=== PATIENT | female | born 1985 | race Two or more races ===

== ENCOUNTER → 2017-07-26 | Outpatient (CLI) | payer OTHER ==
--- NOTE | 2017-07-26 12:49 | REP ---
CERVICAL SPINE, NINE VIEWS: HISTORY: Shoulder pain. There is no acute fracture or subluxation. The intervertebral discs are normal in height. The neural foramina are patent. IMPRESSION: There is no acute fracture or subluxation. Signed by Karl Back MD 07/26/2017 12:50 P
--- NOTE | 2017-07-26 12:51 | REP ---
RIGHT SHOULDER, THREE VIEWS: HISTORY: Pain. There is no acute fracture or dislocation. The joint spaces are normal in appearance. IMPRESSION: There is no acute fracture or dislocation. Signed by Karl Back MD 07/26/2017 12:52 P
== END ==
LOC: M LRY 11:35
PROVIDERS: ATTEND Nurse Practitioner Family
DX: M25.511 Pain in right shoulder (principal); M54.2 Cervicalgia
CPT/HCPCS: 72052; 73030; G0463

== ENCOUNTER → 2017-08-18 | Outpatient (REF) | payer OTHER | LOC: M LAB REF 17:38 | PROVIDERS: ATTEND Family Medicine | DX: Z01.419 Encounter for gynecological examination (general) (routine) without abnormal findings (principal); Z11.51 Encounter for screening for human papillomavirus (HPV) ==

== ENCOUNTER → 2017-10-13 | Outpatient (REF) | payer OTHER | LOC: M LAB REF 17:15 | PROVIDERS: ATTEND Physician Assistant Medical | DX: J06.9 Acute upper respiratory infection, unspecified (principal) ==

== ENCOUNTER → 2017-11-18 | Outpatient (REF) | payer OTHER | LOC: M LAB REF 17:13 | PROVIDERS: ATTEND Family Medicine | DX: J02.9 Acute pharyngitis, unspecified (principal) ==

== ENCOUNTER → 2018-02-16 | Outpatient (CLI) | payer OTHER ==
[2018-02-16 13:47] LABS: ALBUMIN 4.1 GM/DL (3.2-5.2); ALBUMIN/GLOBULIN RATIO 1.14 (1.00-1.93); ALKALINE PHOSPHATASE 108 U/L (45-117); ALT/SGPT 21 U/L (12-78); ANION GAP 5 MEQ/L (8-16); AST/SGOT 19 U/L (7-37); BILIRUBIN,TOTAL 0.3 MG/DL (0.2-1.0); BLOOD UREA NITROGEN 8 MG/DL (7-18); CALCIUM LEVEL 8.5 MG/DL (8.5-10.1); CARBON DIOXIDE LEVEL 30 MEQ/L (21-32); CHLORIDE LEVEL 104 MEQ/L (98-107); FREE T4 1.04 NG/DL (0.76-1.46); GLOMERULAR FILTRATION RATE > 60.0 (>60); GLUCOSE, FASTING 97 MG/DL (70-100); POTASSIUM SERUM 4.4 MEQ/L (3.5-5.1); SODIUM LEVEL 139 MEQ/L (136-145); TOTAL PROTEIN 7.7 GM/DL (6.4-8.2)
== END ==
LOC: M SMT 09:45
DX: Z13.29 Encounter for screening for other suspected endocrine disorder (principal)
CPT/HCPCS: 84443

== ENCOUNTER → 2018-04-13 | Outpatient (CLI) | payer OTHER | LOC: M SMT 14:45 | DX: M25.512 Pain in left shoulder (principal); M25.522 Pain in left elbow | CPT/HCPCS: 73030 ==

== ENCOUNTER → 2018-05-20 | Outpatient (REF) | payer OTHER | LOC: M LAB REF 17:23 | DX: N39.3 Stress incontinence (female) (male) (principal) ==

== ENCOUNTER 2018-07-28 13:51 | Emergency (ER) | payer OTHER | END 2018-07-28 15:59 | disposition left against medical advice (07) | LOC: M ED 13:51 | DX: Z53.29 Procedure and treatment not carried out because of patient's decision for other reasons (principal) ==

== ENCOUNTER → 2019-04-28 | Outpatient (CLI) | payer OTHER ==
[~2019-04-28] MED LIST: ADDE20CA3 PO; IBUP1TAB7 PO; LEXA1TAB2 PO; VARE1TA PO; XANA1TAB2 PO
[2019-04-28 14:47] LABS: MONO REFLEX EBV VCA IgM NEGATIVE (NEGATIVE)
== END ==
LOC: M SMT 11:50
PROVIDERS: ATTEND Physician Assistant
DX: R53.83 Other fatigue (principal)

== ENCOUNTER → 2019-05-09 | Outpatient (REF) | payer OTHER | LOC: M LAB REF 17:16 | PROVIDERS: ATTEND Physician Assistant | DX: R35.0 Frequency of micturition (principal) ==

== ENCOUNTER 2019-05-31 20:36 | Emergency (ER) | payer OTHER ==
[~2019-05-31] VITALS: Ht 154.9 cm; Wt 63.6 kg
[2019-05-31] MEDS ORDERED: ADDE1TAB14 PO (21:15)
[2019-05-31] MEDS ORDERED: GI COCKTAIL 50ML BTL(HYOSCYAMINE/MAALOX/LIDOCAINE VISCOUS)(1:3:1) PO ONE (22:00)
[2019-05-31 22:58] VITALS: BP 115/80
[2019-05-31] MEDS ORDERED: TRAM50TA2 PO (22:58)
[2019-05-31] MEDS ORDERED: SUCR1SS PO (22:58)
[2019-05-31] MEDS ORDERED: traMADol 50 MG TAB PO ONE (23:15)
== END 2019-05-31 23:06 | disposition home or self-care (01) ==
LOC: M ED 20:36
DX: K21.0 Gastro-esophageal reflux disease with esophagitis (principal); K27.9 Peptic ulcer, site unspecified, unspecified as acute or chronic, without hemorrhage or perforation; M25.562 Pain in left knee; F90.9 Attention-deficit hyperactivity disorder, unspecified type; Z87.19 Personal history of other diseases of the digestive system; Z88.0 Allergy status to penicillin; Z88.1 Allergy status to other antibiotic agents

== ENCOUNTER 2019-06-08 20:18 | Emergency (ER) | payer OTHER ==
[~2019-06-08] VITALS: Ht 154.9 cm; Wt 130.0 kg
[~2019-06-08 20:18] MED LIST changes: +ADDE1TAB14 PO; +SUCR1SS PO; +TRAM50TA2 PO
[2019-06-08 21:42] LABS: BASO # 0.1 10^3/uL (0.0-0.2); BASO % 0.4 % (0.0-1.0); EOS # 0.1 10^3/uL (0.0-0.50); HEMATOCRIT 34.7 % (36.0-47.0); HEMOGLOBIN 11.6 g/dl (12.0-15.5); LYMPH # 2.4 10^3/uL (1.5-4.5); LYMPH % 20.8 % (24.0-44.0); MEAN CORPUSCULAR HEMOGLOBIN 31.5 pg (27.0-33.0); MEAN CORPUSCULAR HGB CONC 33.4 g/dl (32.0-36.5); MEAN CORPUSCULAR VOLUME 94.3 fl (80.0-96.0); MONO # 0.9 10^3/uL (0.0-0.8); MONO % 8.3 % (0.0-5.0); NEUTROPHILS # 7.8 10^3/uL (1.8-7.7); NEUTROPHILS % 68.8 % (36.0-66.0); PLATELET COUNT, AUTOMATED 348 10^3/uL (150-450); RED BLOOD COUNT 3.68 10^6/uL (4.00-5.40); WHITE BLOOD COUNT 11.3 10^3/uL (4.0-10.0)
[2019-06-08 22:05] LABS: ALBUMIN 3.3 GM/DL (3.2-5.2); ALT/SGPT 23 U/L (12-78); BILIRUBIN,DIRECT 0.1 MG/DL (0.0-0.2); BILIRUBIN,TOTAL 0.3 MG/DL (0.2-1.0); BLOOD UREA NITROGEN 8 MG/DL (7-18); CALCIUM LEVEL 8.5 MG/DL (8.5-10.1); CARBON DIOXIDE LEVEL 26 MEQ/L (21-32); CHLORIDE LEVEL 104 MEQ/L (98-107); CREATININE FOR GFR 0.54 MG/DL (0.55-1.30); GLOMERULAR FILTRATION RATE > 60.0 (>60); GLUCOSE, FASTING 86 MG/DL (70-100); LIPASE 55 U/L (73-393); POTASSIUM SERUM 3.3 MEQ/L (3.5-5.1); SODIUM LEVEL 140 MEQ/L (136-145); TOTAL PROTEIN 7.7 GM/DL (6.4-8.2)
[2019-06-08] MEDS ORDERED: NAPR-837 PO (23:29)
[2019-06-08] MEDS ORDERED: POTASSIUM CHLORIDE 10 MEQ SR TABLET PO ONE (23:30)
[2019-06-08] MEDS ORDERED: KETOROLAC 30 MG/ML VIAL (J1885) IM ONE (23:30)
[2019-06-09 00:27] VITALS: BP 132/72
== END 2019-06-09 00:29 | disposition home or self-care (01) ==
LOC: M ED 20:18
DX: R07.81 Pleurodynia (principal); M94.9 Disorder of cartilage, unspecified; E87.6 Hypokalemia; F41.9 Anxiety disorder, unspecified; F32.9 Major depressive disorder, single episode, unspecified; F90.9 Attention-deficit hyperactivity disorder, unspecified type; F17.200 Nicotine dependence, unspecified, uncomplicated; Z88.0 Allergy status to penicillin; Z88.1 Allergy status to other antibiotic agents
CPT/HCPCS: 80048; 80076; 81001; 83690; 85025; 93041; 94760; 96372; 99284; J1885

== ENCOUNTER 2019-06-20 18:11 | Inpatient (IN) | payer OTHER ==
[~2019-06-20] VITALS: Ht 154.9 cm; Wt 67.8 kg
[~2019-06-20 18:11] MED LIST changes: +NAPR-837 PO
[2019-06-20] MEDS ORDERED: CLIN300C5 (18:23)
[2019-06-20] MEDS ORDERED: METH2.5T48 (18:23)
[2019-06-20] MEDS ORDERED: FOLI1TAB11 (18:23)
[2019-06-20] MEDS ORDERED: ONDA4TAB5 (18:23)
[2019-06-20] MEDS ORDERED: FLUO20CA19 (18:24)
[2019-06-20] MEDS ORDERED: ALPR1TAB3 (18:24)
[2019-06-20] MEDS ORDERED: CLON1TAB8 (18:24)
[2019-06-20] MEDS ORDERED: PROZ20CA11 PO (19:52)
[2019-06-20] MEDS ORDERED: ZANT150T40 PO ×2 (19:52→23:17)
[2019-06-20 20:58] LABS: BASO # 0.1 10^3/uL (0.0-0.2); BASO % 0.4 % (0.0-1.0); EOS # 0.2 10^3/uL (0.0-0.50); EOS % 1.4 % (0.0-3.0); HEMATOCRIT 32.9 % (36.0-47.0); HEMOGLOBIN 10.6 g/dl (12.0-15.5); LYMPH # 2.3 10^3/uL (1.5-4.5); LYMPH % 18.2 % (24.0-44.0); MEAN CORPUSCULAR HGB CONC 32.2 g/dl (32.0-36.5); MEAN CORPUSCULAR VOLUME 93.2 fl (80.0-96.0); MONO # 0.8 10^3/uL (0.0-0.8); MONO % 6.1 % (0.0-5.0); NEUTROPHILS # 9.3 10^3/uL (1.8-7.7); NEUTROPHILS % 73.2 % (36.0-66.0); PLATELET COUNT, AUTOMATED 403 10^3/uL (150-450); RED BLOOD COUNT 3.53 10^6/uL (4.00-5.40); WHITE BLOOD COUNT 12.7 10^3/uL (4.0-10.0)
[2019-06-20 21:16] LABS: ALBUMIN 3.3 GM/DL (3.2-5.2); ALT/SGPT 48 U/L (12-78); BILIRUBIN,DIRECT 0.2 MG/DL (0.0-0.2); BILIRUBIN,TOTAL 0.3 MG/DL (0.2-1.0); BLOOD UREA NITROGEN 6 MG/DL (7-18); CALCIUM LEVEL 8.6 MG/DL (8.5-10.1); CARBON DIOXIDE LEVEL 30 MEQ/L (21-32); CHLORIDE LEVEL 106 MEQ/L (98-107); GLOMERULAR FILTRATION RATE > 60.0 (>60); GLUCOSE, FASTING 92 MG/DL (70-100); POTASSIUM SERUM 3.4 MEQ/L (3.5-5.1); SODIUM LEVEL 141 MEQ/L (136-145); TOTAL PROTEIN 7.4 GM/DL (6.4-8.2)
[2019-06-20 21:18] LABS: ERYTHROCYTE SEDIMENTATION RATE 107 mm/hr (0-20)
[2019-06-20] MEDS ORDERED: NS 1,000 ML IV ONE (22:00)
--- NOTE | 2019-06-20 22:58 | HPEPDOC ---
General Date of Admission 06/20/19 Date of Service: Jun 20, 2019 Attending Physician: ROBY VOGT MD Chief Complaint The patient is a 33-year-old female admitted with a reason for visit of Skin Pro blem. Source: Patient Exam Limitations: No limitations Timing/Duration: Day(s) Severity: Mild Associated Symptoms: Rash History of Present Illness 33 years old white female with past medical history of rheumatoid arthritis, status post partial hysterectomy was in her usual state of health until she noticed that she was bitten by a spider on her inner aspect of left lower accident. He just above the ankle and it started swelling, redness with with the serosanguineous discharge. Patient was sent by her tractor expert for further evaluation and possible admission for IV antibiotics Home Medications Scheduled Clindamycin Hcl (Cleocin HCl) 300 Mg Capsule, 300 MG PO Q8H, (Reported) Dextroamphetamine/Amphetamine (Adderall 5 mg Tablet) 5 Mg Tablet, 5 MG PO BID, (Reported) 0800, 1300 Fluoxetine Hcl (Fluoxetine HCl) 20 Mg Capsule, 60 MG PO DAILY, (Reported) Folic Acid (Folic Acid) 1 Mg Tablet, 1 MG PO DAILY, (Reported) Methotrexate Sodium (Methotrexate) 2.5 Mg Tablet, 10 MG PO 1XWK, (Reported) Ondansetron HCl (Ondansetron HCl) 4 Mg Tablet, 4 MG PO 1XWK, (Reported) TAKES WITH METHOTREXATE Ranitidine Hcl (Zantac) 150 Mg Tablet, 1 TAB PO BID, (Reported) Scheduled PRN Acetaminophen (Tylenol Extra Strength) 500 Mg Tablet, 1,000 MG PO Q6H PRN for PAIN, (Reported) Alprazolam (Alprazolam) 1 Mg Tablet, 1 MG PO BID PRN for ANXIETY, (Reported) Allergies Coded Allergies: Penicillins (Verified Allergy, Intermediate, THROAT CLOSING , 05/31/19) levofloxacin (Verified Allergy, Intermediate, VOMITING AND CHEST PAIN, 05/31/19) Past Medical History Medical History Rheumatoid arthritis, anxiety disorder Surgical History Partial hysterectomy Family History Significant Family History: No pertinent family hx Social History * Smoker: Denies Alcohol: Denies Drugs: denies A-FIB/CHADSVASC A-FIB History Current/History of A-Fib/PAF?: No Review of Systems Constitutional: Denies: Chills, Fever, Malaise, Night Sweats, Weakness, Fatigue, Weight Loss, Lethargy, Other Eyes: Denies: Pain, Vision change, Conjunctivae inflammation, Eyelid inflammation, Redness, Other ENT: Denies: Head Aches, Ear Pain, Dysphagia, Sinus Congestion, Post Nasal Drip, Sore Throat, Epistaxis, Other Symptoms Skin: Denies: Rash, Lesions, Jaundice, Bruising, Itching, Dry, Breakdown, Nail Changes, Other Pulmonary: Denies: Dyspnea, Cough, Pleuritic Chest Pain, Other Symptoms Cardiovascular: Denies: Chest Pain, Palpitations, Orthopnea, Paroxysmal Noc. Dyspnea, Edema, Lt Headedness, Other Symptoms Genitourinary: Denies: Dysuria, Frequency, Incontinence, Hematuria, Retention, Other Symptoms Hematologic: Denies: Bruising, Bleeding Excessively, Petecchia, Purpura, Enlarged Lymph Nodes, Other Hematologic Endocrine: Denies: Polydipsia, Polyphagia, Polyuria, Heat Intolerance, Cold Intolerance, Other Endocrine Sx Musculoskeletal: Reports: Other Symptoms (swelling, redness with some discharge at the inner aspect of left lower extremity just above the ankle) Neurological: Denies: Weakness, Numbness, Incoordination, Change in speech, Confusion, Seizures, Other Symptoms Psych: Denies: Mood Normal, Anxiety, Depression, Memory Issues, Thoughts of Self Harm, Anger, Thoughts of Harming Other, Other Psych Physical Examination General Exam: Positive: Alert, Cooperative Eye Exam: Positive: PERRLA, Conjunctiva & lids normal ENT Exam: Positive: Atraumatic, Mucous membr. moist/pink Neck Exam: Positive: Supple Chest Exam: Positive: Clear to auscultation, Normal air movement Heart Exam: Positive: Rate Normal, Normal S1, Normal S2 Abdomen Exam: Positive: Normal bowel sounds Extremity Exam: Positive: Normal pulses, Other (swelling, redness with some discharge and the wound at left lower extremity inner aspect just above the medial malleolus) Skin Exam: Positive: Nl turgor and temperature Neuro Exam: Positive: Normal Gait Psych Exam: Positive: Mental status NL Vital Signs Vital Signs Date Time Temp Pulse Resp B/P (MAP) Pulse Ox O2 Delivery O2 Flow Rate FiO2 06/20/19 22:39 98.3 77 123/77 (92) 99 06/20/19 18:12 17 Room Air Laboratory Data Labs 24H Laboratory Tests 2 06/20/19 20:37: Immature Granulocyte % (Auto) 0.7, White Blood Count 12.7H, Red Blood Count 3.53L, Hemoglobin 10.6L, Hematocrit 32.9L, Mean Corpuscular Volume 93.2, Mean Corpuscular Hemoglobin 30.0, Mean Corpuscular Hemoglobin Concent 32.2, Red Cell Distribution Width 12.9, Platelet Count 403, Neutrophils (%) (Auto) 73.2H, Lymphocytes (%) (Auto) 18.2L, Monocytes (%) (Auto) 6.1H, Eosinophils (%) (Auto) 1.4, Basophils (%) (Auto) 0.4, Neutrophils # (Auto) 9.3H, Lymphocytes # (Auto) 2.3, Monocytes # (Auto) 0.8, Eosinophils # (Auto) 0.2, Basophils # (Auto) 0.1, Nucleated Red Blood Cells % (auto) 0.0, Erythrocyte Sedimentation Rate 107H, Anion Gap 5L, Glomerular Filtration Rate > 60.0, Lactic Acid Level 0.8, Calcium Level 8.6, Aspartate Amino Transf (AST/SGOT) 49H, Alanine Aminotransferase (ALT/SGPT) 48, Alkaline Phosphatase 218H, Total Bilirubin 0.3, Direct Bilirubin 0.2, C-Reactive Protein, Quantitative 17.90H, Total Protein 7.4, Albumin 3.3, Albumin/Globulin Ratio 0.80L CBC/BMP Laboratory Tests 06/20/19 20:37 Red Blood Count 3.53 L, Mean Corpuscular Volume 93.2, Mean Corpuscular Hemoglobin 30.0, Mean Corpuscular Hemoglobin Concent 32.2, Red Cell Distribution Width 12.9, Neutrophils (%) (Auto) 73.2 H, Lymphocytes (%) (Auto) 18.2 L, Monocytes (%) (Auto) 6.1 H, Eosinophils (%) (Auto) 1.4, Basophils (%) (Auto) 0.4, Neutrophils # (Auto) 9.3 H, Lymphocytes # (Auto) 2.3, Monocytes # (Auto) 0.8, Eosinophils # (Auto) 0.2, Basophils # (Auto) 0.1 Microbiology Microbiology 06/20/19 Gram Stain, Received Pending 06/20/19 Wound Culture, Received Pending Problems (1) Cellulitis and abscess of left leg Status: Acute Problem Text: Admit to medical floor IV clindamycin 300 mg IV every 8 hours Wound culture and Gram stain has been ordered , Tylenol when necessary Please follow wound culture once available DVT prophylaxis with Lovenox Regular diet Activity as tolerated Follow a.m. labs Plan / VTE VTE Prophylaxis Ordered?: Yes ROBY VOGT MD Jun 20, 2019 22:58
[2019-06-20] MEDS ORDERED: CLEO300C2 PO (23:17)
[2019-06-20] MEDS ORDERED: FLUO20CA8 PO (23:17)
[2019-06-20] MEDS ORDERED: METH2.5T48 PO (23:17)
[2019-06-20] MEDS ORDERED: ACET-897 PO (23:17)
[2019-06-20] MEDS ORDERED: ALPR1TAB3 PO (23:17)
[2019-06-20] MEDS ORDERED: ADDE1TAB14 PO (23:17)
[2019-06-20] MEDS ORDERED: FOLI1TAB11 PO (23:17)
[2019-06-20] MEDS ORDERED: ONDA4TAB5 PO (23:17)
[2019-06-21] VITALS: BP 129/78
[2019-06-21] MEDS: CLINDAMYCIN 300 MG in APPROPRIATE DILUENT 1 EA IV SCH ×4 (00:08→23:31)
[2019-06-21] MEDS: ACETAMINOPHEN TAB 650MG DOSE (2X325MG) PO PRN ×4 (00:31→19:20)
[2019-06-21] MEDS: ALPRAZolam 0.5 MG TAB PO PRN ×3 (00:51→20:36)
[2019-06-21 08:00] VITALS: BP 128/82
[2019-06-21] MEDS: ADDERALL 5 MG TAB PO SCH ×2 (08:00→13:00)
[2019-06-21] MEDS: ENOXAPARIN 40 MG/0.4 ML SYRINGE (J1650) SC SCH (08:11)
[2019-06-21] MEDS: FOLIC ACID 1 MG TAB PO SCH (08:12)
[2019-06-21] MEDS: FLUoxetine 20 MG CAP PO SCH (08:12)
[2019-06-21] MEDS: FAMOTIDINE 20 MG TAB PO SCH ×2 (08:13→20:36)
[2019-06-21 08:58] LABS: HEMATOCRIT 29.8 % (36.0-47.0); HEMOGLOBIN 9.7 g/dl (12.0-15.5); MEAN CORPUSCULAR HGB CONC 32.6 g/dl (32.0-36.5); MEAN CORPUSCULAR VOLUME 92.3 fl (80.0-96.0); PLATELET COUNT, AUTOMATED 340 10^3/uL (150-450); RED BLOOD COUNT 3.23 10^6/uL (4.00-5.40); WHITE BLOOD COUNT 9.2 10^3/uL (4.0-10.0)
[2019-06-21 09:29] LABS: ALBUMIN 2.7 GM/DL (3.2-5.2); ALT/SGPT 48 U/L (12-78); BILIRUBIN,TOTAL 0.3 MG/DL (0.2-1.0); BLOOD UREA NITROGEN 6 MG/DL (7-18); CALCIUM LEVEL 8.3 MG/DL (8.5-10.1); CARBON DIOXIDE LEVEL 28 MEQ/L (21-32); CHLORIDE LEVEL 108 MEQ/L (98-107); CREATININE FOR GFR 0.67 MG/DL (0.55-1.30); GLOMERULAR FILTRATION RATE > 60.0 (>60); GLUCOSE, FASTING 115 MG/DL (70-100); POTASSIUM SERUM 3.5 MEQ/L (3.5-5.1); SODIUM LEVEL 140 MEQ/L (136-145); TOTAL PROTEIN 7.5 GM/DL (6.4-8.2)
[2019-06-21] MEDS: traMADol 50 MG TAB PO PRN ×2 (11:18→23:31)
--- NOTE | 2019-06-21 12:25 | IPNPDOC ---
Subjective Date Seen The patient was seen on 06/21/19. Subjective Chief Complaint/HPI Patient seen and examined at the bedside. States that she is feeling better today, and notes that the drainage from her left lower extremity wound is improved. Objective Physical Examination General Exam: Positive: Alert, Cooperative, No Acute Distress Eye Exam: Positive: PERRLA, Conjunctiva & lids normal ENT Exam: Positive: Atraumatic, Mucous membr. moist/pink Neck Exam: Positive: Supple Chest Exam: Positive: Clear to auscultation, Normal air movement Heart Exam: Positive: Rate Normal, Normal S1, Normal S2 Abdomen Exam: Positive: Normal bowel sounds Extremity Exam: Positive: Normal pulses, Other (swelling, redness with some discharge and the wound at left lower extremity inner aspect just above the medial malleolus. Area of induration and erythema appears improved from previous demarcation site.) Psych Exam: Positive: Mental status NL, Oriented x 3 Assessment /Plan Problems (1) Cellulitis and abscess of left leg Status: Acute Problem Text: Admit to medical floor Continue clindamycin 300 mg IV every 8 hours Wound culture and Gram stain pending Area of induration and erythema appears improved compared to previous d emarcation site. White blood cell count and CRP markers improved Wound care nurse consulted We will continue to monitor Rheumatoid arthritis Follow-up as an outpatient and restart methotrexate once over acute infection. DVT prophylaxis with Lovenox Plan/VTE VTE Prophylaxis Ordered?: Yes VS, I&O, 24H, Fishbone Vital Signs/I&O Vital Signs Date Time Temp Pulse Resp B/P (MAP) Pulse Ox O2 Delivery O2 Flow Rate FiO2 06/21/19 11:18 16 06/21/19 08:00 97.4 71 128/82 (97) 96 06/20/19 18:12 Room Air I&O- Last 24 Hours up to 6 AM 06/21/19 06:00 Intake Total 50 ml Output Total 450 ml Balance -400 ml Laboratory Data 24H LABS Laboratory Tests 2 06/20/19 20:37: Immature Granulocyte % (Auto) 0.7, White Blood Count 12.7H, Red Blood Count 3.53L, Hemoglobin 10.6L, Hematocrit 32.9L, Mean Corpuscular Volume 93.2, Mean Corpuscular Hemoglobin 30.0, Mean Corpuscular Hemoglobin Concent 32.2, Red Cell Distribution Width 12.9, Platelet Count 403, Neutrophils (%) (Auto) 73.2H, Lymphocytes (%) (Auto) 18.2L, Monocytes (%) (Auto) 6.1H, Eosinophils (%) (Auto) 1.4, Basophils (%) (Auto) 0.4, Neutrophils # (Auto) 9.3H, Lymphocytes # (Auto) 2.3, Monocytes # (Auto) 0.8, Eosinophils # (Auto) 0.2, Basophils # (Auto) 0.1, Nucleated Red Blood Cells % (auto) 0.0, Erythrocyte Sedimentation Rate 107H, Anion Gap 5L, Glomerular Filtration Rate > 60.0, Lactic Acid Level 0.8, Calcium Level 8.6, Aspartate Amino Transf (AST/SGOT) 49H, Alanine Aminotransferase (ALT/SGPT) 48, Alkaline Phosphatase 218H, Total Bilirubin 0.3, Direct Bilirubin 0.2, C-Reactive Protein, Quantitative 17.90H, Total Protein 7.4, Albumin 3.3, Albumin/Globulin Ratio 0.80L 06/21/19 08:47: Nucleated Red Blood Cells % (auto) 0.0, Anion Gap 4L, Glomerular Filtration Rate > 60.0, Calcium Level 8.3L, Aspartate Amino Transf (AST/SGOT) 43H, Alanine Aminotransferase (ALT/SGPT) 48, Alkaline Phosphatase 187H, Total Bilirubin 0.3, C-Reactive Protein, Quantitative 12.60H, Total Protein 7.5, Albumin 2.7L, Albumin/Globulin Ratio 0.56L, Blood Urea Nitrogen 6L, Creatinine 0.67, Sodium Level 140, Potassium Level 3.5, Chloride Level 108H, Carbon Dioxide Level 28 CBC/BMP Laboratory Tests 06/20/19 20:37 Red Blood Count 3.53 L, Mean Corpuscular Volume 93.2, Mean Corpuscular Hemoglobin 30.0, Mean Corpuscular Hemoglobin Concent 32.2, Red Cell Distribution Width 12.9, Neutrophils (%) (Auto) 73.2 H, Lymphocytes (%) (Auto) 18.2 L, Monocytes (%) (Auto) 6.1 H, Eosinophils (%) (Auto) 1.4, Basophils (%) (Auto) 0.4, Neutrophils # (Auto) 9.3 H, Lymphocytes # (Auto) 2.3, Monocytes # (Auto) 0.8, Eosinophils # (Auto) 0.2, Basophils # (Auto) 0.1 06/21/19 08:47 Red Blood Count 3.23 L, Mean Corpuscular Volume 92.3, Mean Corpuscular Hemoglobin 30.0, Mean Corpuscular Hemoglobin Concent 32.6, Red Cell Distribution Width 13.0, Calcium Level 8.3 L, Aspartate Amino Transf (AST/SGOT) 43 H, Alanine Aminotransferase (ALT/SGPT) 48, Alkaline Phosphatase 187 H, Total Bilirubin 0.3, Total Protein 7.5, Albumin 2.7 L Microbiology Microbiology 06/20/19 Gram Stain - Final, Resulted 06/20/19 Wound Culture, Resulted Pending MIKE CASTAÑEDA MD Jun 21, 2019 12:25
[2019-06-21] MEDS: NICOTINE 21MG/24HR 1 EA TRANSDERMAL TD SCH (13:04)
[2019-06-21 16:00] VITALS: BP 125/84
[2019-06-21 20:00] VITALS: BP 143/81
[2019-06-21] MEDS: KETOROLAC 30 MG/ML VIAL (J1885) IM PRN (20:36)
[2019-06-22 04:00] VITALS: BP 130/82
[2019-06-22] MEDS: ACETAMINOPHEN TAB 650MG DOSE (2X325MG) PO PRN ×3 (06:36→17:50)
[2019-06-22] MEDS: KETOROLAC 30 MG/ML VIAL (J1885) IM PRN ×2 (06:37→17:04)
[2019-06-22 07:49] LABS: HEMOGLOBIN 9.4 g/dl (12.0-15.5); MEAN CORPUSCULAR HEMOGLOBIN 30.3 pg (27.0-33.0); MEAN CORPUSCULAR HGB CONC 33.6 g/dl (32.0-36.5); MEAN CORPUSCULAR VOLUME 90.3 fl (80.0-96.0); PLATELET COUNT, AUTOMATED 337 10^3/uL (150-450); WHITE BLOOD COUNT 9.2 10^3/uL (4.0-10.0)
[2019-06-22 08:00] VITALS: BP 119/66
[2019-06-22] MEDS: ADDERALL 5 MG TAB PO SCH ×2 (08:00→13:00)
[2019-06-22 08:11] LABS: BLOOD UREA NITROGEN 9 MG/DL (7-18); CALCIUM LEVEL 8.2 MG/DL (8.5-10.1); CARBON DIOXIDE LEVEL 25 MEQ/L (21-32); CHLORIDE LEVEL 108 MEQ/L (98-107); CREATININE FOR GFR 0.62 MG/DL (0.55-1.30); GLOMERULAR FILTRATION RATE > 60.0 (>60); GLUCOSE, FASTING 97 MG/DL (70-100); POTASSIUM SERUM 3.8 MEQ/L (3.5-5.1); SODIUM LEVEL 140 MEQ/L (136-145)
[2019-06-22] MEDS: CLINDAMYCIN 300 MG in APPROPRIATE DILUENT 1 EA IV SCH ×2 (08:24→16:46)
[2019-06-22] MEDS: NICOTINE 21MG/24HR 1 EA TRANSDERMAL TD SCH (09:09)
[2019-06-22] MEDS: ENOXAPARIN 40 MG/0.4 ML SYRINGE (J1650) SC SCH (09:09)
[2019-06-22] MEDS: FAMOTIDINE 20 MG TAB PO SCH ×2 (09:10→20:24)
[2019-06-22] MEDS: FOLIC ACID 1 MG TAB PO SCH (09:10)
[2019-06-22] MEDS: FLUoxetine 20 MG CAP PO SCH (09:10)
[2019-06-22] MEDS: ALPRAZolam 0.5 MG TAB PO PRN ×2 (09:21→21:47)
[2019-06-22 10:19] LABS: FERRITIN 254 NG/ML (8-252); IRON (FE) 24 UG/DL (50-170); PERCENT SATURATION 12.8 % (13.2-45.0); TOTAL IRON BINDING CAPACITY 188 UG/DL (250-450)
[2019-06-22 10:33] LABS: VITAMIN B12 LEVEL 637 PG/ML (247-911)
[2019-06-22 10:34] LABS: FOLATE 12.1 NG/ML (>5.4)
--- NOTE | 2019-06-22 11:49 | IPNPDOC ---
Subjective Date Seen The patient was seen on 06/22/19. Subjective Chief Complaint/HPI Patient seen and examined at bedside. Reports that her left lower extremity wound is improving. She endorses improvement of her pain level. Objective Physical Examination General Exam: Positive: Alert, Cooperative, No Acute Distress Eye Exam: Positive: PERRLA, Conjunctiva & lids normal ENT Exam: Positive: Atraumatic, Mucous membr. moist/pink Neck Exam: Positive: Supple Chest Exam: Positive: Clear to auscultation, Normal air movement Heart Exam: Positive: Rate Normal, Normal S1, Normal S2 Abdomen Exam: Positive: Normal bowel sounds Extremity Exam: Positive: Normal pulses, Other (swelling, redness with some discharge and the wound at left lower extremity inner aspect just above the medial malleolus. Area of induration and erythema appears improved from previous demarcation site.) Psych Exam: Positive: Mental status NL, Oriented x 3 Assessment /Plan Plan/VTE VTE Prophylaxis Ordered?: Yes Plan LLE Cellulitis Continue clindamycin 300 mg IV every 8 hours Wound culture and Gram stain unrevealing thus far Area of induration and erythema appears improved compared to previous demarcation site. White blood cell count and CRP markers improved Wound care nurse on board We will continue to monitor--anticipate transition to PO Abx in 24 hrs Rheumatoid arthritis Follow-up as an outpatient and restart methotrexate once over acute infection. Normocytic Anemia 2/2 Iron Deficiency Anemia No active bleeding noted, (patient does not have menstrual cycle as she had a hysterectomy in the past) Iron supplementation ordered DVT prophylaxis with Lovenox VS, I&O, 24H, Fishbone Vital Signs/I&O Vital Signs Date Time Temp Pulse Resp B/P (MAP) Pulse Ox O2 Delivery O2 Flow Rate FiO2 06/22/19 11:37 16 06/22/19 08:00 98.3 68 119/66 (83) 98 06/20/19 18:12 Room Air I&O- Last 24 Hours up to 6 AM 06/22/19 06:00 Intake Total 2260 ml Output Total 2200 ml Balance 60 ml Laboratory Data 24H LABS Laboratory Tests 2 06/22/19 07:36: Nucleated Red Blood Cells % (auto) 0.0, Anion Gap 7L, Glomerular Filtration Rate > 60.0, Blood Urea Nitrogen 9, Creatinine 0.62, Sodium Level 140, Potassium Level 3.8, Chloride Level 108H, Carbon Dioxide Level 25, Calcium Level 8.2L, Iron Level 24L, Total Iron Binding Capacity 188L, Transferrin % Saturation 12.8L, Ferritin 254H, C-Reactive Protein, Quantitative 10.20H, Vitamin B12 Level 637, Folate 12.1 CBC/BMP Laboratory Tests 06/22/19 07:36 Red Blood Count 3.10 L, Mean Corpuscular Volume 90.3, Mean Corpuscular Hemoglobin 30.3, Mean Corpuscular Hemoglobin Concent 33.6, Red Cell Distribution Width 12.9, Calcium Level 8.2 L Microbiology Microbiology 06/20/19 Gram Stain - Final, Complete 06/20/19 Wound Culture - Final, Complete MIKE CASTAÑEDA MD Jun 22, 2019 11:49
[2019-06-22] MEDS: FERROUS SULFATE 325MG TAB PO SCH (13:28)
[2019-06-22] MEDS: traMADol 50 MG TAB PO PRN (13:28)
[2019-06-22 16:00] VITALS: BP 123/72
[2019-06-22 20:00] VITALS: BP 122/83
[2019-06-22] MEDS: ONDANSETRON 4 MG TAB (S0181) PO PRN (21:47)
[2019-06-23] VITALS: BP 122/81
[2019-06-23] MEDS: CLINDAMYCIN 300 MG in APPROPRIATE DILUENT 1 EA IV SCH ×2 (00:28→08:28)
[2019-06-23] MEDS: KETOROLAC 30 MG/ML VIAL (J1885) IM PRN ×2 (00:30→08:41)
[2019-06-23] MEDS: traMADol 50 MG TAB PO PRN (01:49)
[2019-06-23] MEDS: ACETAMINOPHEN TAB 650MG DOSE (2X325MG) PO PRN (05:49)
[2019-06-23] MEDS: ONDANSETRON 4 MG TAB (S0181) PO PRN ×2 (05:49→11:07)
[2019-06-23 06:23] LABS: HEMATOCRIT 32.9 % (36.0-47.0); HEMOGLOBIN 10.7 g/dl (12.0-15.5); MEAN CORPUSCULAR HEMOGLOBIN 30.7 pg (27.0-33.0); MEAN CORPUSCULAR HGB CONC 32.5 g/dl (32.0-36.5); MEAN CORPUSCULAR VOLUME 94.5 fl (80.0-96.0); PLATELET COUNT, AUTOMATED 346 10^3/uL (150-450); RED BLOOD COUNT 3.48 10^6/uL (4.00-5.40); WHITE BLOOD COUNT 8.4 10^3/uL (4.0-10.0)
[2019-06-23 08:00] VITALS: BP 124/89
[2019-06-23] MEDS: ADDERALL 5 MG TAB PO SCH (08:00)
[2019-06-23] MEDS ORDERED: MOM 30ML SUSPENSION UDC PO PRN (08:15)
[2019-06-23] MEDS: FOLIC ACID 1 MG TAB PO SCH (08:28)
[2019-06-23] MEDS: FERROUS SULFATE 325MG TAB PO SCH (08:28)
[2019-06-23] MEDS: NICOTINE 21MG/24HR 1 EA TRANSDERMAL TD SCH (08:29)
[2019-06-23] MEDS: ENOXAPARIN 40 MG/0.4 ML SYRINGE (J1650) SC SCH (08:29)
[2019-06-23] MEDS: FAMOTIDINE 20 MG TAB PO SCH (08:29)
[2019-06-23] MEDS: FLUoxetine 20 MG CAP PO SCH (08:29)
[2019-06-23] MEDS ORDERED: SENNA 8.6 MG TAB (SENOKOT) PO SCH (09:00)
[2019-06-23] MEDS: ALPRAZolam 0.5 MG TAB PO PRN (09:21)
[2019-06-23] MEDS ORDERED: FERR325T18 PO (10:37)
--- NOTE | 2019-06-23 14:54 | DS.PDOC ---
Discharge Summary General Date of Admission Jun 22, 2019 at 15:28 Date of Discharge 06/23/19. Discharge Summary PROCEDURES PERFORMED DURING STAY: None. ADMITTING/DISCHARGE DIAGNOSES: Left lower extremity cellulitis History of rheumatoid arthritis COMPLICATIONS/CHIEF COMPLAINT: Cellulitis Of Left Leg. HISTORY OF PRESENT ILLNESS: . 33-year-old female with past medical history of rheumatoid arthritis and anxiety/depression presents to the ER for left lower extremity cellulitis which worsened as an outpatient despite treatment. The patient states that she had taken 2 days of antibiotics, and was concerned that her left lower extremity had worsened. She states that the wound appeared after she had a bug bite. She denies any trauma to the area. She denied any fevers, chills, chest pain. This, developing, or any nausea/vomiting/diarrhea. She was admitted to the hospitalist service for treatment of her cellulitis. During her hospitalization, the patient was started on IV antibiotic therapy. A wound care consult was called. The patient's left lower extremity cellulitis/wound significantly improved with the aforementioned treatment. The patient's white blood cell count normalized, and her CRP markers continue to trend downward. At this time, the patient states that she is feeling much better at home. She has been counseled to continue antibiotic therapy as prescribed. Follow-up with PCP within 7 days. Return to the ER for any acute emergencies. DISCHARGE MEDICATIONS: Please see below. ALLERGIES: Please see below. PHYSICAL EXAMINATION ON DISCHARGE: VITAL SIGNS: Please see below. General Exam: Positive: Alert, Cooperative, No Acute Distress Eye Exam: Positive: PERRLA, Conjunctiva & lids normal ENT Exam: Positive: Atraumatic, Mucous membr. moist/pink Neck Exam: Positive: Supple Chest Exam: Positive: Clear to auscultation, Normal air movement Heart Exam: Positive: Rate Normal, Normal S1, Normal S2 Abdomen Exam: Positive: Normal bowel sounds Extremity Exam: Positive: Normal pulses, Other (swelling, redness with some discharge and wound at left lower extremity inner aspect just above the medial malleolus. Area of induration and erythema appears improved from previous demarcation site. She also has significantly reduced discharge.) Psych Exam: Positive: Mental status NL, Oriented x 3 LABORATORY DATA: Please see below. PROGNOSIS: Fair ACTIVITY: As tolerated. DIET: Regular DISCHARGE PLAN: DISPOSITION: 01 Home, Self-Care. DISCHARGE INSTRUCTIONS: She has been counseled to continue antibiotic therapy as prescribed. Follow-up with PCP within 7 days. Return to the ER for any acute emergencies. DISCHARGE CONDITION: Stable. TIME SPENT ON DISCHARGE: Greater than 30 minutes. Vital Signs/I&Os Vital Signs Date Time Temp Pulse Resp B/P (MAP) Pulse Ox O2 Delivery O2 Flow Rate FiO2 06/23/19 08:41 16 06/23/19 08:00 98.0 70 124/89 (101) 99 06/20/19 18:12 Room Air I&O- Last 24 Hours up to 6 AM 06/23/19 06:00 Intake Total 1150 ml Output Total 2675 ml Balance -1525 ml Laboratory Data Labs 24H Laboratory Tests 2 06/23/19 05:59: Nucleated Red Blood Cells % (auto) 0.0, C-Reactive Protein, Quantitative 9.97H CBC/BMP Laboratory Tests 06/23/19 05:59 Red Blood Count 3.48 L, Mean Corpuscular Volume 94.5, Mean Corpuscular Hemoglobin 30.7, Mean Corpuscular Hemoglobin Concent 32.5, Red Cell Distribution Width 12.8 Microbiology Microbiology 06/20/19 Gram Stain - Final, Complete 06/20/19 Wound Culture - Final, Complete Discharge Medications Scheduled Clindamycin Hcl (Cleocin HCl) 300 Mg Capsule, 300 MG PO Q8H, (Reported) Dextroamphetamine/Amphetamine (Adderall 5 mg Tablet) 5 Mg Tablet, 5 MG PO BID, (Reported) 0800, 1300 Ferrous Sulfate (Ferrous Sulfate) 325 Mg Tablet, 325 MG PO DAILY Fluoxetine Hcl (Fluoxetine HCl) 20 Mg Capsule, 60 MG PO DAILY, (Reported) Folic Acid (Folic Acid) 1 Mg Tablet, 1 MG PO DAILY, (Reported) Ondansetron HCl (Ondansetron HCl) 4 Mg Tablet, 4 MG PO 1XWK, (Reported) TAKES WITH METHOTREXATE Ranitidine Hcl (Zantac) 150 Mg Tablet, 1 TAB PO BID, (Reported) Scheduled PRN Acetaminophen (Tylenol Extra Strength) 500 Mg Tablet, 1,000 MG PO Q6H PRN for PAIN, (Reported) Alprazolam (Alprazolam) 1 Mg Tablet, 1 MG PO BID PRN for ANXIETY, (Reported) Allergies Coded Allergies: Penicillins (Verified Allergy, Intermediate, THROAT CLOSING , 05/31/19) levofloxacin (Verified Allergy, Intermediate, VOMITING AND CHEST PAIN, 05/31/19) MIKE CASTAÑEDA MD Jun 23, 2019 14:54
== END 2019-06-23 12:30 | disposition home or self-care (01) | DRG 603 ==
LOC: M ED 18:11 → M ED INP 18:12 → M PED 23:55 → OBSVTOIN 06-22 15:28
PROVIDERS: ADMIT Internal Medicine; ATTEND Internal Medicine
DX: L03.116 Cellulitis of left lower limb (principal); F41.9 Anxiety disorder, unspecified; F32.9 Major depressive disorder, single episode, unspecified; M06.9 Rheumatoid arthritis, unspecified; Z79.899 Other long term (current) drug therapy; Z88.0 Allergy status to penicillin; Z88.8 Allergy status to other drugs, medicaments and biological substances

== ENCOUNTER 2019-06-26 16:00 | Emergency (ER) | payer OTHER ==
[~2019-06-26] VITALS: Ht 154.9 cm; Wt 63.6 kg
[2019-06-26 16:00] VITALS: BP 118/76
[~2019-06-26 16:00] MED LIST changes: +ACET-897 PO; +ALPR1TAB3; +ALPR1TAB3 PO; +CLEO300C2 PO; +CLIN300C5; +CLON1TAB8; +FERR325T18 PO; +FLUO20CA19; +FLUO20CA8 PO; +FOLI1TAB11; +FOLI1TAB11 PO; +METH2.5T48; +METH2.5T48 PO; +ONDA4TAB5; +ONDA4TAB5 PO; +PROZ20CA11 PO; +ZANT150T40 PO
[2019-06-26 18:27] LABS: BASO # 0.1 10^3/uL (0.0-0.2); BASO % 0.4 % (0.0-1.0); EOS # 0.1 10^3/uL (0.0-0.50); EOS % 0.3 % (0.0-3.0); HEMATOCRIT 35.3 % (36.0-47.0); HEMOGLOBIN 11.7 g/dl (12.0-15.5); LYMPH # 1.9 10^3/uL (1.5-4.5); LYMPH % 12.7 % (24.0-44.0); MEAN CORPUSCULAR HEMOGLOBIN 31.2 pg (27.0-33.0); MEAN CORPUSCULAR HGB CONC 33.1 g/dl (32.0-36.5); MEAN CORPUSCULAR VOLUME 94.1 fl (80.0-96.0); MONO # 0.7 10^3/uL (0.0-0.8); MONO % 4.9 % (0.0-5.0); NEUTROPHILS # 12.2 10^3/uL (1.8-7.7); NEUTROPHILS % 81.2 % (36.0-66.0); PLATELET COUNT, AUTOMATED 367 10^3/uL (150-450); RED BLOOD COUNT 3.75 10^6/uL (4.00-5.40)
[2019-06-29 14:11] LABS: Lyme Disease IgG Ab 18 kDa Ban Absent (.); Lyme Disease IgG Ab 23 kDa Ban Absent (.); Lyme Disease IgG Ab 28 kDa Ban Absent (.); Lyme Disease IgG Ab 30 kDa Ban Absent (.); Lyme Disease IgG Ab 39 kDa Ban Absent (.); Lyme Disease IgG Ab 41 kDa Ban Absent (.); Lyme Disease IgG Ab 45 kDa Ban Absent (.); Lyme Disease IgG Ab 58 kDa Ban Absent (.); Lyme Disease IgG Ab 66 kDa Ban Absent (.); Lyme Disease IgG Ab 93 kDa Ban Absent (.); Lyme Disease IgG West Blot Int Negative (.); Lyme Disease IgG/IgM Antibodie <0.91 ISR (0.00-0.90); Lyme Disease IgM Ab 23 kDa Ban Absent (.); Lyme Disease IgM Ab 39 kDa Ban Absent (.); Lyme Disease IgM Ab 41 kDa Ban Absent (.); Lyme Disease IgM Ab Quantitati 0.86 index (0.00-0.79); Lyme Disease IgM West Blot Int Negative (.)
== END 2019-06-26 18:58 | disposition home or self-care (01) ==
LOC: M ED 16:00
DX: L03.317 Cellulitis of buttock (principal); L03.116 Cellulitis of left lower limb; Z79.899 Other long term (current) drug therapy; Z88.0 Allergy status to penicillin; Z88.8 Allergy status to other drugs, medicaments and biological substances

== ENCOUNTER → 2019-06-27 | Outpatient (REF) | payer OTHER ==
[~2019-06-27] MED LIST changes: +DOXY-346; +TRAM50TA2
== END ==
LOC: M LAB REF 17:02
PROVIDERS: ATTEND Physician Assistant
DX: L03.317 Cellulitis of buttock (principal)

== ENCOUNTER 2019-06-30 17:43 | Emergency (ER) | payer OTHER ==
[~2019-06-30] VITALS: Ht 154.9 cm; Wt 63.6 kg
[~2019-06-30 17:43] MED LIST changes: -DOXY-346; +FLUO20CA20 PO; -FLUO20CA8 PO; +ONDA-83; +ONDA-83 PO; -ONDA4TAB5; -ONDA4TAB5 PO; -TRAM50TA2
[2019-06-30] MEDS ORDERED: TRAM50TA2 (17:51)
[2019-06-30] MEDS ORDERED: DOXY-346 (17:51)
[2019-06-30 18:30] LABS: BASO % 0.5 % (0.0-1.0); EOS # 0.1 10^3/uL (0.0-0.50); EOS % 1.2 % (0.0-3.0); HEMATOCRIT 34.6 % (36.0-47.0); HEMOGLOBIN 11.2 g/dl (12.0-15.5); LYMPH # 1.9 10^3/uL (1.5-4.5); LYMPH % 23.1 % (24.0-44.0); MEAN CORPUSCULAR HEMOGLOBIN 30.6 pg (27.0-33.0); MEAN CORPUSCULAR HGB CONC 32.4 g/dl (32.0-36.5); MEAN CORPUSCULAR VOLUME 94.5 fl (80.0-96.0); MONO # 0.6 10^3/uL (0.0-0.8); MONO % 7.7 % (0.0-5.0); NEUTROPHILS # 5.5 10^3/uL (1.8-7.7); PLATELET COUNT, AUTOMATED 359 10^3/uL (150-450); RED BLOOD COUNT 3.66 10^6/uL (4.00-5.40); WHITE BLOOD COUNT 8.2 10^3/uL (4.0-10.0)
[2019-06-30 18:53] LABS: ERYTHROCYTE SEDIMENTATION RATE 77 mm/hr (0-20)
[2019-06-30 18:55] LABS: BLOOD UREA NITROGEN 7 MG/DL (7-18); C REACTIVE PROTEIN QUANTITATIV 4.86 MG/DL (0.00-0.30); CALCIUM LEVEL 9.1 MG/DL (8.5-10.1); CARBON DIOXIDE LEVEL 28 MEQ/L (21-32); CHLORIDE LEVEL 104 MEQ/L (98-107); CREATININE FOR GFR 0.66 MG/DL (0.55-1.30); GLOMERULAR FILTRATION RATE > 60.0 (>60); GLUCOSE, FASTING 103 MG/DL (70-100); POTASSIUM SERUM 3.8 MEQ/L (3.5-5.1); SODIUM LEVEL 138 MEQ/L (136-145)
[2019-06-30] MEDS ORDERED: ISOVUE-370 76% 100ML VIAL (Q9967) As Ordered ONE (19:54)
[2019-06-30 21:07] VITALS: BP 104/69
--- NOTE | 2019-06-30 21:33 | REPVR ---
EXAM: CT Left Lower Extremity With Contrast, Tibia and Fibula EXAM DATE/TIME: 06/30/2019 8:15 PM CLINICAL HISTORY: 34 years old, female; Condition or disease; Other: Abscess; Additional info: With contrast pls, R/O osteomyelitis, non healing abscess TECHNIQUE: Imaging protocol: CT of the Left lower extremity with intravenous contrast was performed. Exam focused on the tibia and fibula. Coronal and sagittal reformatted images were created and reviewed. Radiation optimization: All CT scans at this facility use at least one of these dose optimization techniques: automated exposure control; mA and/or kV adjustment per patient size (includes targeted exams where dose is matched to clinical indication); or iterative reconstruction. Contrast material: ISOVUE 370;Contrast volume: 100 ml;Contrast route: IV; COMPARISON: No relevant prior studies available. FINDINGS: Bones/joints: Normal appearing bones with no evidence of osteomyelitis. Soft tissues: There is no evidence of abnormal contrast enhancement. There is no evidence of abscess. There is however prominent soft tissue swelling and some skin thickening posterior to the calcaneus. IMPRESSION: No evidence of osteomyelitis. Electronically signed by: Bipin Webb On 06/30/2019 21:33:40 PM
== END 2019-06-30 22:00 | disposition home or self-care (01) ==
LOC: M ED 17:43
DX: L03.116 Cellulitis of left lower limb (principal); M06.9 Rheumatoid arthritis, unspecified; Z79.899 Other long term (current) drug therapy; Z88.0 Allergy status to penicillin; Z88.1 Allergy status to other antibiotic agents; F17.210 Nicotine dependence, cigarettes, uncomplicated
CPT/HCPCS: 36415; 73701; 80048; 85025; 85652; 86140; 87040; 99284; Q9967

== ENCOUNTER → 2019-09-26 | Outpatient (CLI) | payer OTHER ==
[~2019-09-26] MED LIST changes: +DOXY-346; -FLUO20CA20 PO; +FLUO20CA8 PO; -ONDA-83; -ONDA-83 PO; +ONDA4TAB5; +ONDA4TAB5 PO; +TRAM50TA2
--- NOTE | 2019-09-26 10:56 | REP ---
Clinical: Cough and left lower chest pain . Comparison: None . Technique: PA and lateral. Findings: The mediastinum and cardiac silhouette are normal. The lung aquino are clear and without acute consolidation, effusion, or pneumothorax. The skeletal structures are intact and normal. Impression: 1. No acute cardiopulmonary process. Electronically Signed by Javid Elizondo MD 09/26/2019 10:47 A
[2019-09-26 11:01] LABS: BASO # 0.1 10^3/uL (0.0-0.2); BASO % 0.6 % (0.0-1.0); EOS # 0.1 10^3/uL (0.0-0.5); EOS % 0.9 % (0.0-3.0); HEMATOCRIT 41.3 % (36.0-47.0); HEMOGLOBIN 13.4 g/dl (12.0-15.5); LYMPH # 1.6 10^3/uL (1.5-5.0); LYMPH % 12.4 % (24.0-44.0); MEAN CORPUSCULAR HEMOGLOBIN 31.5 pg (27.0-33.0); MEAN CORPUSCULAR HGB CONC 32.4 g/dl (32.0-36.5); MEAN CORPUSCULAR VOLUME 96.9 fl (80.0-96.0); MONO # 0.9 10^3/uL (0.0-0.8); MONO % 6.5 % (0.0-5.0); NEUTROPHILS # 10.4 10^3/uL (1.5-8.5); NEUTROPHILS % 79.1 % (36.0-66.0); PLATELET COUNT, AUTOMATED 269 10^3/uL (150-450); RED BLOOD COUNT 4.26 10^6/uL (4.00-5.40); WHITE BLOOD COUNT 13.2 10^3/uL (4.0-10.0)
[2019-09-26 11:34] LABS: MONO SCRN NEGATIVE (NEGATIVE)
[2019-09-26 11:35] LABS: ALBUMIN 3.6 GM/DL (3.2-5.2); ALT/SGPT 20 U/L (12-78); BILIRUBIN,TOTAL 0.3 MG/DL (0.2-1.0); BLOOD UREA NITROGEN 6 MG/DL (7-18); CALCIUM LEVEL 8.8 MG/DL (8.5-10.1); CARBON DIOXIDE LEVEL 27 MEQ/L (21-32); CHLORIDE LEVEL 105 MEQ/L (98-107); CREATININE FOR GFR 0.63 MG/DL (0.55-1.30); GLOMERULAR FILTRATION RATE > 60.0 (>60); GLUCOSE, FASTING 103 MG/DL (70-100); POTASSIUM SERUM 3.8 MEQ/L (3.5-5.1); SODIUM LEVEL 137 MEQ/L (136-145); TOTAL PROTEIN 7.6 GM/DL (6.4-8.2)
== END ==
LOC: M LAB 10:07
PROVIDERS: ATTEND Physician Assistant
DX: R05 Cough (principal)

== ENCOUNTER 2020-02-28 20:33 | Emergency (ER) | payer OTHER ==
[~2020-02-28] VITALS: Ht 154.9 cm; Wt 60.9 kg
[~2020-02-28 20:33] MED LIST changes: -FLUO20CA19; +FLUO20CA20 PO; +FLUO20CA22; -FLUO20CA8 PO; +ONDA-83; +ONDA-83 PO; -ONDA4TAB5; -ONDA4TAB5 PO
[2020-02-28 20:34] VITALS: BP 112/68
[2020-02-28] MEDS ORDERED: predniSONE 20 MG TAB PO ONE (22:00)
[2020-02-28] MEDS ORDERED: PRED20TA PO (22:32)
--- NOTE | 2020-02-29 01:24 | ECGEPIP ---
[facility] - ED Test Date: 2020-02-28 Pat Name: QIANA SMITH Department: Room: - Gender: Female [employer] Professor: elvis : 1985 Requested By: MICHAELLE Vicente PA-C Order Number: [id number] Reading MD: Rohan Mc Measurements Intervals [place] Rate: 57 P: 56 TN: 193 QRS: 38 QRSD: 87 T: 33 QT: 422 QTc: 414 Interpretive Statements SINUS BRADYCARDIA INCOMPLETE RIGHT BUNDLE BRANCH BLOCK, NEW COMPARED TO 07/28/18 Electronically Signed on 02-29-2020 1:24:10 EDT by Rohan Mc
--- NOTE | 2020-02-29 08:16 | REP ---
Chest x-ray: Two views. History: Left chest wall pain. Comparison study: September 26, 2019. Findings: There is a somewhat elongate nodular opacity projecting in the first left anterior intercostal space over the left apex. This does not appear to have been present previously. I cannot exclude a pulmonary nodule. The lungs are otherwise clear. Pleural angles are sharp. Cardiomediastinal silhouette and bony thorax are unremarkable. Impression: Somewhat elongate nodular neodensity left lung apex rule out pulmonary nodule. Repeat chest x-ray may be considered. If the density persists, chest CT study may be warranted. Electronically Signed by Omar Quijano MD 02/29/2020 08:08 A
== END 2020-02-28 23:02 | disposition home or self-care (01) ==
LOC: M ED 20:33
DX: R05 Cough (principal); R06.02 Shortness of breath; J02.9 Acute pharyngitis, unspecified; R07.9 Chest pain, unspecified; R91.8 Other nonspecific abnormal finding of lung field; R00.1 Bradycardia, unspecified; F41.0 Panic disorder [episodic paroxysmal anxiety]; F32.9 Major depressive disorder, single episode, unspecified; F90.9 Attention-deficit hyperactivity disorder, unspecified type; F17.210 Nicotine dependence, cigarettes, uncomplicated; Z88.0 Allergy status to penicillin; Z88.1 Allergy status to other antibiotic agents; Z79.899 Other long term (current) drug therapy
CPT/HCPCS: 71046; 87486; 87581; 87633; 87798; 87880; 93005; 99284; U0002

== ENCOUNTER 2020-03-03 11:15 | Emergency (ER) | payer OTHER ==
[~2020-03-03] VITALS: Ht 154.9 cm; Wt 60.4 kg
[~2020-03-03 11:15] MED LIST changes: +PRED20TA PO
[2020-03-03 12:17] LABS: BASO % 0.1 % (0.0-1.0); HEMATOCRIT 43.1 % (36.0-47.0); HEMOGLOBIN 14.4 g/dl (12.0-15.5); LYMPH # 0.9 10^3/uL (1.5-5.0); LYMPH % 6.4 % (24.0-44.0); MEAN CORPUSCULAR HGB CONC 33.4 g/dl (32.0-36.5); MEAN CORPUSCULAR VOLUME 92.9 fl (80.0-96.0); MONO # 0.2 10^3/uL (0.0-0.8); MONO % 1.7 % (0.0-5.0); NEUTROPHILS # 12.5 10^3/uL (1.5-8.5); NEUTROPHILS % 91.2 % (36.0-66.0); PLATELET COUNT, AUTOMATED 249 10^3/uL (150-450); RED BLOOD COUNT 4.64 10^6/uL (4.00-5.40); WHITE BLOOD COUNT 13.7 10^3/uL (4.0-10.0)
[2020-03-03 12:27] LABS: INR 0.99; PROTHROMBIN TIME 12.8 SECONDS (11.8-14.0)
[2020-03-03 12:28] LABS: PARTIAL THROMBOPLASTIN TIME 27.8 SECONDS (25.0-38.4)
[2020-03-03 12:30] LABS: D-DIMER QUANT 380.78 ng/ml (<500)
[2020-03-03 12:36] VITALS: O2SAT 95
[2020-03-03 12:52] LABS: ALBUMIN 3.8 GM/DL (3.2-5.2); ALT/SGPT 21 U/L (12-78); BILIRUBIN,DIRECT < 0.1 MG/DL (0.0-0.2); BILIRUBIN,TOTAL 0.4 MG/DL (0.2-1.0); BLOOD UREA NITROGEN 22 MG/DL (7-18); CALCIUM LEVEL 8.8 MG/DL (8.5-10.1); CARBON DIOXIDE LEVEL 25 MEQ/L (21-32); CHLORIDE LEVEL 104 MEQ/L (98-107); CK-MB VALUE MASS < 1.0 NG/ML (<3.6); CPK CREATINE PHOSPHOKINASE 44 U/L (26-192); CREATININE FOR GFR 0.75 MG/DL (0.55-1.30); FREE T4 0.99 NG/DL (0.76-1.46); GLOMERULAR FILTRATION RATE > 60.0 (>60); GLUCOSE, FASTING 108 MG/DL (70-100); MB/CK RELATIVE INDEX 2.27 (< OR =4); POTASSIUM SERUM 3.5 MEQ/L (3.5-5.1); SODIUM LEVEL 135 MEQ/L (136-145); THYROID STIMULATING HORMONE 0.422 uIU/ML (0.358-3.740); TOTAL PROTEIN 7.7 GM/DL (6.4-8.2); TROPONIN I < 0.02 NG/ML (< 0.10)
[2020-03-03 12:53] LABS: HCG, SERUM QUALITATIVE NEGATIVE (NEGATIVE)
[2020-03-03] MEDS ORDERED: ISOVUE-370 76% 100ML VIAL (Q9967) As Ordered ONE (13:17)
[2020-03-03] MEDS ORDERED: NS 1,000 ML IV ONE (14:30)
--- NOTE | 2020-03-03 14:31 | REP ---
CT ANGIOGRAM CHEST: TECHNIQUE: Axial contrast enhanced images from the thoracic inlet to the upper abdomen using 100 mL Isovue 370 intravenous contrast material with multiplanar reformations. No infiltrate is seen in either lung. There is a 4 mm nodule in the left lower lobe which is of doubtful significance. There is no axillary adenopathy. There is a mildly enlarged subcarinal lymph node 1.3 cm in short axis. There is no other evidence of mediastinal or hilar adenopathy. The heart is normal in size. There is no pleural or pericardial effusion. Thoracic aorta is normal in caliber with no dissection. No evidence of pulmonary embolism. IMPRESSION: No acute infiltrate. There is a 4 mm nodular density in the left lobe which is of doubtful significance. There is mild enlargement of a subcarinal lymph node 1.3 cm in short axis. No evidence of pulmonary embolism or aortic dissection. Electronically Signed by Modesto Richardson MD 03/03/2020 05:32 P
[2020-03-03] MEDS ORDERED: PROAAER10 INH (15:18)
[2020-03-03] MEDS ORDERED: NAPR-885 PO (15:19)
[2020-03-03 15:22] LABS: CK-MB VALUE MASS < 1.0 NG/ML (<3.6); CPK CREATINE PHOSPHOKINASE 31 U/L (26-192); MB/CK RELATIVE INDEX 3.23 (< OR =4); TROPONIN I < 0.02 NG/ML (< 0.10)
[2020-03-03 16:17] VITALS: BP 131/74
--- NOTE | 2020-03-03 18:38 | ECGEPIP ---
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
--- NOTE | 2020-03-05 14:40 | ED PDOC ---
Post-Departure Follow-Up dr fiorella ceja faxed formal report of cta chest for fu Ilana Bruno MD Mar 05, 2020 14:40
== END 2020-03-03 16:20 | disposition home or self-care (01) ==
LOC: M ED 11:15
DX: J20.9 Acute bronchitis, unspecified (principal); F41.9 Anxiety disorder, unspecified; R91.1 Solitary pulmonary nodule; M06.9 Rheumatoid arthritis, unspecified; F17.200 Nicotine dependence, unspecified, uncomplicated; Z88.0 Allergy status to penicillin; Z88.1 Allergy status to other antibiotic agents; Z79.899 Other long term (current) drug therapy; Z20.828 Contact with and (suspected) exposure to other viral communicable diseases
CPT/HCPCS: 36415; 71275; 80048; 80076; 82550; 82553; 84439; 84443; 84484; 84703; 85025; 85379; 85610; 85730; 93005; 96360; 99284; Q9967

== ENCOUNTER → 2020-06-26 | Outpatient (REF) | payer OTHER ==
[~2020-06-26] MED LIST changes: +ELIQ5TAB PO; +HYDR-3713; +MYRB25TA PO; +NAPR-885 PO; +NORC1TAB7 PO; +OMEP40CA97 PO; +ONDA4TAB6; +PROAAER10 INH; +TYLETAB14 PO
== END ==
LOC: M LAB REF 10:34
PROVIDERS: ATTEND Family Medicine
DX: N39.3 Stress incontinence (female) (male) (principal)

== ENCOUNTER 2020-07-09 17:50 | Emergency (ER) | payer OTHER ==
[~2020-07-09 17:50] MED LIST changes: -ELIQ5TAB PO; -HYDR-3713; -MYRB25TA PO; -NORC1TAB7 PO; -OMEP40CA97 PO; -ONDA4TAB6; -TYLETAB14 PO
[2020-07-09] MEDS ORDERED: ONDANSETRON 4MG/2ML VIAL As Ordered ONE (18:39)
[2020-07-09] MEDS ORDERED: MORPHINE 4 MG/ML 1ML VIAL/SYRINGE (J2270) As Ordered ONE (18:39)
[2020-07-09] MEDS ORDERED: ONDANSETRON 4MG/2ML VIAL ONE (18:39)
[2020-07-09] MEDS ORDERED: MORPHINE 4 MG/ML 1ML VIAL/SYRINGE (J2270) ONE (18:39)
[2020-07-09] MEDS ORDERED: ISOVUE-370 76% 100ML VIAL As Ordered ONE (20:40)
[2020-07-09] MEDS ORDERED: KETOROLAC 30 MG/ML 1ML VIAL ONE (20:50)
[2020-07-09] MEDS ORDERED: KETOROLAC 30 MG/ML 1ML VIAL As Ordered ONE (20:50)
[2020-07-18] MEDS ORDERED: HYDR-3713 (14:43)
[2020-07-18] MEDS ORDERED: ONDA4TAB6 (14:43)
[2020-07-18] MEDS ORDERED: OMEP40CA97 PO (14:43)
[2020-08-01] MEDS ORDERED: TYLETAB14 PO (10:40)
[2020-08-01] MEDS ORDERED: ELIQ5TAB PO (11:06)
[2020-08-23 10:11] LABS: BASO # 0.1 10^3/uL (0.0-0.2); BASO % 0.7 % (0.0-1.0); EOS # 0.1 10^3/uL (0.0-0.5); EOS % 1.2 % (0.0-3.0); HEMATOCRIT 45.3 % (36.0-47.0); LYMPH # 2.2 10^3/uL (1.5-5.0); LYMPH % 19.5 % (24.0-44.0); MEAN CORPUSCULAR HEMOGLOBIN 31.2 pg (27.0-33.0); MEAN CORPUSCULAR HGB CONC 33.1 g/dl (32.0-36.5); MEAN CORPUSCULAR VOLUME 94.2 fl (80.0-96.0); MONO # 1.1 10^3/uL (0.0-0.8); MONO % 9.9 % (0.0-5.0); NEUTROPHILS # 7.7 10^3/uL (1.5-8.5); NEUTROPHILS % 67.9 % (36.0-66.0); PLATELET COUNT, AUTOMATED 411 10^3/uL (150-450); RED BLOOD COUNT 4.81 10^6/uL (4.00-5.40); WHITE BLOOD COUNT 11.3 10^3/uL (4.0-10.0)
[2020-08-23 11:23] LABS: APPEARANCE, URINE HAZY (CLEAR); BACTERIA, URINE AUTO NEGATIVE (NEGATIVE); BILIRUBIN, URINE AUTO NEGATIVE (NEGATIVE); BLOOD, URINE BLOOD NEGATIVE (NEGATIVE); COLOR, URINE YELLOW (YELLOW); GLUCOSE, URINE (UA) AUTO NEGATIVE (NEGATIVE); KETONE, URINE AUTO NEGATIVE (NEGATIVE); LEUKOCYTE ESTERASE, URINE AUTO NEGATIVE (NEGATIVE); NITRITE, URINE AUTO NEGATIVE (NEGATIVE); PROTEIN, URINE AUTO NEGATIVE (NEGATIVE); RBC, URINE AUTO 1 /HPF (0-3); SPECIFIC GRAVITY URINE AUTO 1.023 (1.002-1.035); SQUAMOUS EPITHELIAL CELL UR AU 2 /HPF (0-6); WBC, URINE AUTO 1 /HPF (0-3)
[2020-09-21 21:26] LABS: ALBUMIN 4.1 GM/DL (3.2-5.2); ALT/SGPT 19 U/L (12-78); BILIRUBIN,DIRECT 0.2 MG/DL (0.0-0.2); BILIRUBIN,TOTAL 0.4 MG/DL (0.2-1.0); BLOOD UREA NITROGEN 17 MG/DL (7-18); CALCIUM LEVEL 9.1 MG/DL (8.5-10.1); CARBON DIOXIDE LEVEL 27 MEQ/L (21-32); CHLORIDE LEVEL 102 MEQ/L (98-107); CREATININE FOR GFR 0.71 MG/DL (0.55-1.30); GLOMERULAR FILTRATION RATE > 60.0 (>60); GLUCOSE, FASTING 85 MG/DL (70-100); LIPASE 111 U/L (73-393); POTASSIUM SERUM 4.1 MEQ/L (3.5-5.1); SODIUM LEVEL 136 MEQ/L (136-145); TOTAL PROTEIN 8.5 GM/DL (6.4-8.2)
== END 2020-07-09 23:23 | disposition home or self-care (01) ==
LOC: M ED 17:50
DX: R10.32 Left lower quadrant pain (principal); R11.2 Nausea with vomiting, unspecified; F41.9 Anxiety disorder, unspecified; F32.9 Major depressive disorder, single episode, unspecified; Z88.0 Allergy status to penicillin; Z88.1 Allergy status to other antibiotic agents; Z79.899 Other long term (current) drug therapy
CPT/HCPCS: 74177; 80048; 80076; 81001; 83690; 85025; 87086; 96361; 96374; 96375; 99284; J1885; J2270; J2405; Q9967

== ENCOUNTER 2020-07-22 11:45 | Emergency (ER) | payer OTHER ==
[~2020-07-22] VITALS: Ht 154.9 cm; Wt 58.1 kg
[~2020-07-22 11:45] MED LIST changes: +HYDR-3713; +OMEP40CA97 PO; +ONDA4TAB6
[2020-07-22 12:33] LABS: BASO # 0.1 10^3/uL (0.0-0.2); BASO % 0.8 % (0.0-1.0); EOS # 0.1 10^3/uL (0.0-0.5); EOS % 0.7 % (0.0-3.0); HEMOGLOBIN 14.1 g/dl (12.0-15.5); LYMPH % 22.3 % (24.0-44.0); MEAN CORPUSCULAR HEMOGLOBIN 31.3 pg (27.0-33.0); MEAN CORPUSCULAR HGB CONC 32.8 g/dl (32.0-36.5); MEAN CORPUSCULAR VOLUME 95.3 fl (80.0-96.0); MONO # 0.8 10^3/uL (0.0-0.8); MONO % 8.4 % (0.0-5.0); NEUTROPHILS # 6.1 10^3/uL (1.5-8.5); NEUTROPHILS % 67.5 % (36.0-66.0); PLATELET COUNT, AUTOMATED 360 10^3/uL (150-450); RED BLOOD COUNT 4.51 10^6/uL (4.00-5.40)
[2020-07-22 13:13] LABS: ALBUMIN 3.9 GM/DL (3.2-5.2); ALT/SGPT 36 U/L (12-78); BILIRUBIN,DIRECT 0.1 MG/DL (0.0-0.2); BILIRUBIN,TOTAL 0.3 MG/DL (0.2-1.0); LIPASE 123 U/L (73-393); TOTAL PROTEIN 8.1 GM/DL (6.4-8.2)
[2020-07-22] MEDS ORDERED: ONDANSETRON 4MG/2ML VIAL IV ONE (13:45)
[2020-07-22] MEDS ORDERED: KETOROLAC 30 MG/ML 1ML VIAL IV ONE (13:45)
[2020-07-22] MEDS ORDERED: NS 1,000 ML IV ONE (13:45)
[2020-07-22 13:53] LABS: MONO REFLEX EBV COMP NEGATIVE (NEGATIVE)
[2020-07-22] MEDS ORDERED: ISOVUE-370 76% 100ML VIAL As Ordered ONE (13:57)
[2020-07-22] MEDS ORDERED: NORC1TAB7 PO (16:04)
[2020-07-22 16:29] VITALS: BP 129/79
[2020-07-23 12:12] LABS: HEPATITIS B SURFACE ANTIGEN NEGATIVE (NEGATIVE)
[2020-07-23 15:49] LABS: HEPATITIS A ANTIBODY IGM NEGATIVE (NEGATIVE); HEPATITIS B CORE ANTIBODY IGM NEGATIVE (NEGATIVE); HEPATITIS C VIRUS ABY INDEX 0.2 INDEX (<0.8)
[2020-07-24 17:06] LABS: EBV VIRAL CAPSID AG IgM <36.0 U/mL (0.0-35.9)
--- NOTE | 2020-07-26 11:14 | REP ---
CT ANGIOGRAPHY OF THE ABDOMEN WITH INTRAVENOUS (IV) CONTRAST HISTORY: Severe left upper quadrant pain. Possible splenic infarction. COMPARISON: Abdomen and pelvis CT study 07/09/2020. CT CONTRAST DOSE: 100 mL of intravenous Isovue-370. CT FINDINGS: Preliminary digital bus driver radiograph shows umbilical jewelry. Bowel gas pattern is normal. The spleen is enlarged measuring 13.4 cm in greatest diameter. There is poor contrast enhancement in a wedge-shape area of parenchyma in the superior and posterior portion of the spleen as seen on recent prior CT study 07/09/2020, suggestive of focal splenic infarction. In addition, there are multiple low density areas within the spleen, which may be cystic or septated cysts. The largest of these is in the inferolateral spleen measuring 5 cm in greatest diameter. There are three or four cystic areas in the more superior spleen measuring up to 2.8 cm in diameter. The splenic artery and vein are patent. The kidneys enhance symmetrically. There is focal cortical atrophy in the upper pole of the right kidney. The liver is unremarkable. On angiography images the right renal artery is duplicated, but not stenotic. A nonstenotic singular left renal artery is seen. The celiac, SMA, and ODELL origins are widely patent. Suprarenal and infrarenal abdominal aorta are normal in caliber. Adrenal glands are normal. No abnormality is noted in the pancreas. The gallbladder is unremarkable. Small and large bowel loops are unremarkable in the abdomen. IMPRESSION: Splenomegaly with multiple focal hepatic cysts measuring up to 5.0 cm in greatest diameter. There is a wedge-shaped area in the posterosuperior periphery of the spleen, which enhances poorly suggestive of splenic infarction. Findings are similar to the most recent prior study of 07/09/2020, but new when compared to the prior CT pulmonary angiogram from 07/03/2020. There is focal cortical atrophy in the upper pole of the right kidney. The right renal artery is duplicated. Otherwise, negative. MTDD
--- NOTE | 2020-07-26 11:16 | REP ---
CT PULMONARY ANGIOGRAM WITH INTRAVENOUS (IV) CONTRAST HISTORY: Shortness of breath. CT CONTRAST DOSE: 100 mL of intravenous Isovue-370. COMPARISON: 03/03/2020. CT FINDINGS: There is good opacification in the pulmonary arterial tree. There is no CT evidence of pulmonary embolus. The thoracic aorta is enhanced homogeneously as well. There is no evidence of aneurysm or dissection. No pleural or pericardial effusion is apparent. No hilar or mediastinal mass or adenopathy is seen. Lung aquino show no evidence of infiltrate. No pleural effusion is seen. Mild heterogeneous enhancement pattern is seen in the enlarged spleen as described in detail of the abdominal CT study. There is an area of nodular parenchymal opacification in the peribronchovascular region of the left lower lobe displayed on Page 51 of 102 in Series 406 of todays study. This is a new finding compared to the prior study of 03/03/2020. A small focus of inflammatory change is suspected, i.e. pneumonia. There are some foci of focal oligemia again noted in the upper and lower lobes unchanged from the prior study. IMPRESSION: No CT evidence of pulmonary embolus or aortic vascular abnormality. There was a small nodular 13-mm density in the left lower lobe perihilar region, which is new from the 03/03/2020 and most compatible with inflammatory disease or pneumonia. Follow-up is advised. It does have a nodular appearance. Otherwise, negative. MTDD
--- NOTE | 2020-07-30 15:27 | ED PDOC ---
Post-Departure Follow-Up cta abd faxed to dr barros for fu Ilana Bruno MD Jul 30, 2020 15:27
[2020-08-01] MEDS ORDERED: TYLETAB14 PO (10:40)
[2020-08-01] MEDS ORDERED: ELIQ5TAB PO (11:06)
== END 2020-07-22 16:31 | disposition home or self-care (01) ==
LOC: M ED 11:45
DX: D73.5 Infarction of spleen (principal); R91.1 Solitary pulmonary nodule; Z79.899 Other long term (current) drug therapy; Z79.01 Long term (current) use of anticoagulants; Z88.0 Allergy status to penicillin; Z88.1 Allergy status to other antibiotic agents; F17.210 Nicotine dependence, cigarettes, uncomplicated
CPT/HCPCS: 71275; 74175; 80047; 80076; 83690; 85025; 86308; 86664; 86665; 86705; 86709; 86803; 87340; 96360; 96361; 96374; 96375; 99284; J1885; J2405; Q9967

== ENCOUNTER → 2020-07-24 | Outpatient (POV) | payer OTHER ==
[~2020-07-24] MED LIST changes: +ELIQ5TAB PO; +MYRB25TA PO; +NORC1TAB7 PO; +TYLETAB14 PO
--- NOTE | 2020-08-01 10:41 | IRCOV ---
[facility] IR Consult Office Visit IR Consult Office Visit DATE: Jul 24, 2020 Patient agreed to this telephone consultation. I spent 30 minutes reviewing patient's history, imaging and talking to the patient. REASON FOR CONSULTATION/CHIEF COMPLAINT: Enlarged spleen, splenic infarct and splenic cysts. HISTORY OF PRESENT ILLNESS: 35-year-old female with rheumatoid arthritis last on methotrexate greater than 1 year ago presented 2.5 weeks ago to the emergency room with acute left upper quadrant pain. No associated fevers, chills trauma or glandular swelling. She does describe bruising easily, fatigue and weight loss because she is unable to eat for the last couple of weeks. She is nauseous with pain. She describes night sweats. She is a smoker and describes smoker's cough. She was evaluated by oncology and surgery. Her pain persists. She is referred to me for splenic artery evaluation and/or any intervention possible for the splenic lesions. ALLERGIES: Please see below. HOME MEDICATIONS: Please see below. PAST MEDICAL HISTORY: Rheumatoid arthritis PAST SURGICAL HISTORY: Hysterectomy FAMILY HISTORY: Noncontributory SOCIAL HISTORY: Smoker. Denies alcohol or drugs. REVIEW OF SYSTEMS: Otherwise negative PHYSICAL EXAMINATION: No video and patient side LABORATORY DATA: 07/23/2020 hemoglobin 13 hematocrit 40.7 WBC 8.8 platelets 342 MCV 96.9 ESR 34 sodium 139 potassium 3.6 BUN 7 creatinine 0.7 GFR greater than 60. Fasting glucose 88 iron 24 TIBC 188 ferritin 254 total bilirubin 0.2 direct bilirubin 0.1 AST 20 ALT 29 ALP 114 albumin 3.6 Triglycerides 218 total cholesterol 115 LDL 37 vitamin B12 637 folate 12.12 TSH 0.4 T4 0.9 03/03/2020 INR 0.9 07/22/2020 EBV IgG 388 EBV IgM less than 36 EBV nuclear antigen antibody 364 hepatitis A- hepatitis B- hepatitis C negative [place] screen negative HPV screen negative Lyme disease negative Imaging: I personally reviewed the CT abdomen with contrast performed 07/22/2020. There is hepatosplenomegaly. No ascites. No periesophageal or gastric varices. Classic celiac artery branching pattern with patent splenic artery without aneurysm or occlusion. Splenic and portal vein are patent. Enlarged spleen with perfusion artifact and large area of infarction cephalad. Multiple other hypodense round areas. No perisplenic fluid. No significant lymphadenopathy. ASSESSMENT/PLAN: 35-year-old female with rheumatoid arthritis, hepatosplenomegaly with new splenic infarctions associated with extreme pain. Draining the cysts will not ease this pain. The pain is associated with capsular irritation from splenic infarction and expansion of the splenic capsule. Und erlying reasons for hepatosplenomegaly may need further workup and I will refer to GI for this. May take a couple months for this pain to resolve and the area that is infarcted will shrink naturally. No IR intervention appropriate at present. I spent 30 minutes in consultation with the patient. Thank you for this referral. Cc Gray DAVIS Allergies Coded Allergies: Penicillins (Verified Allergy, Intermediate, THROAT CLOSING , 02/28/20) levofloxacin (Verified Allergy, Intermediate, VOMITING AND CHEST PAIN, 02/28/20) Home Medications Scheduled Fluoxetine Hcl (Fluoxetine HCl), 60 MG PO DAILY, (Reported) Omeprazole (Omeprazole), 40 MG PO DAILY, (Reported) Scheduled PRN Alprazolam (Alprazolam), 1 MG PO BID PRN for ANXIETY, (Reported) NADIA GORDON MD Aug 01, 2020 10:41
== END ==
LOC: M IRPOV 14:24
PROVIDERS: ATTEND Radiology Diagnostic Radiology
DX: R16.1 Splenomegaly, not elsewhere classified (principal); D73.5 Infarction of spleen; D73.4 Cyst of spleen; M06.9 Rheumatoid arthritis, unspecified; F17.210 Nicotine dependence, cigarettes, uncomplicated; Z90.710 Acquired absence of both cervix and uterus

== ENCOUNTER → 2020-07-24 | Outpatient (POV) | payer OTHER | LOC: M TMIRPOV 10:37 | PROVIDERS: ATTEND Radiology Diagnostic Radiology | DX: R16.1 Splenomegaly, not elsewhere classified (principal); D73.5 Infarction of spleen; D73.4 Cyst of spleen; Z53.8 Procedure and treatment not carried out for other reasons ==

== ENCOUNTER → 2020-08-03 | Outpatient (CLI) | payer OTHER ==
--- NOTE | 2020-08-08 14:56 | ECHO ---
DATE OF PROCEDURE: 08/03/2020 Age: 35 Gender: Female Height: Weight: REFERRING PHYSICIAN: Tejinder Alonzo MD Patient Location: Outpatient. INDICATION: Lung nodules MEASUREMENTS: 2D measurements: IVS 0.7 cm LV 4.3 cm LVOT 0.6 cm LA 2.8 cm Aorta 2.4 cm IVC 0.9 cm DOPPLER MEASUREMENTS: Peak velocity across the aortic valve 1.3 m/s Peak velocity across the LVOT 1.0 m/s Mitral E 0.9 Mitral A 0.8 with a ratio of 1.2 2D COMMENTS: 1. Normal left ventricular size, wall thickness and normal global left ventricular systolic function. Estimated left ventricular systolic ejection fraction is 60 to 65% 2. Normal left atrium. Normal right atrium and right ventricle. 3. The atrial septum appears to be normal without evidence of defect or shunt. 4. Normal aortic root. 5. No pericardial effusion seen. 6. The mitral valve, the aortic valve, the tricuspid valve and the pulmonic valve appear to be normal. The proximal pulmonary artery branches were not well visualized. 7. Inferior vena cava was normal in size. Central venous pressure is most likely normal. DOPPLER: It detects mild mitral regurgitation, trace tricuspid regurgitation. Pulmonary artery systolic pressure is most likely normal. Abnormalities relaxation pattern was noted across the mitral valve leaflets, as well as the mitral valve annulus consistent with features of grade 1 left ventricular diastolic dysfunction. IMPRESSION: 1. Normal global left ventricular systolic function. There are some features of grade 1 left ventricular diastolic dysfunction manifested by abnormalities relaxation. 2. Mild mitral regurgitation (MR). 3. Trace tricuspid regurgitation. MTDD
== END ==
LOC: M CARPUL 11:27
PROVIDERS: ATTEND Internal Medicine Hematology & Oncology
DX: R91.1 Solitary pulmonary nodule (principal)

== ENCOUNTER 2020-09-13 12:37 | Emergency (ER) | payer OTHER ==
[~2020-09-13] VITALS: Ht 154.9 cm; Wt 61.5 kg
[~2020-09-13 12:37] MED LIST changes: -MYRB25TA PO
[2020-09-13] MEDS ORDERED: MYRB25TA PO (12:51)
[2020-09-13] MEDS ORDERED: ONDA4TAB6 (12:51)
[2020-09-13 13:46] LABS: BASO # 0.1 10^3/uL (0.0-0.2); BASO % 0.5 % (0.0-1.0); EOS # 0.1 10^3/uL (0.0-0.5); EOS % 0.4 % (0.0-3.0); HEMATOCRIT 41.1 % (36.0-47.0); HEMOGLOBIN 13.6 g/dl (12.0-15.5); LYMPH % 12.6 % (24.0-44.0); MEAN CORPUSCULAR HEMOGLOBIN 31.7 pg (27.0-33.0); MEAN CORPUSCULAR HGB CONC 33.1 g/dl (32.0-36.5); MEAN CORPUSCULAR VOLUME 95.8 fl (80.0-96.0); MONO # 1.4 10^3/uL (0.0-0.8); MONO % 8.9 % (0.0-5.0); NEUTROPHILS # 12.1 10^3/uL (1.5-8.5); NEUTROPHILS % 77.2 % (36.0-66.0); PLATELET COUNT, AUTOMATED 286 10^3/uL (150-450); RED BLOOD COUNT 4.29 10^6/uL (4.00-5.40); WHITE BLOOD COUNT 15.6 10^3/uL (4.0-10.0)
[2020-09-13 14:02] LABS: HCG, SERUM QUALITATIVE NEGATIVE (NEGATIVE)
[2020-09-13 14:03] LABS: ALBUMIN 3.7 GM/DL (3.2-5.2); ALT/SGPT 24 U/L (12-78); BILIRUBIN,DIRECT 0.2 MG/DL (0.0-0.2); BILIRUBIN,TOTAL 0.6 MG/DL (0.2-1.0); BLOOD UREA NITROGEN 7 MG/DL (7-18); CALCIUM LEVEL 9.2 MG/DL (8.5-10.1); CARBON DIOXIDE LEVEL 30 MEQ/L (21-32); CHLORIDE LEVEL 103 MEQ/L (98-107); CREATININE FOR GFR 0.68 MG/DL (0.55-1.30); GLOMERULAR FILTRATION RATE > 60.0 (>60); GLUCOSE, FASTING 91 MG/DL (70-100); LIPASE 59 U/L (73-393); POTASSIUM SERUM 3.9 MEQ/L (3.5-5.1); SODIUM LEVEL 137 MEQ/L (136-145); TOTAL PROTEIN 7.8 GM/DL (6.4-8.2)
[2020-09-13] MEDS ORDERED: ONDANSETRON 4 MG ORAL DISINTEGRATING TAB PO ONE (15:45)
[2020-09-13] MEDS ORDERED: NORCO, ANEXSIA 5/325MG TABLET (HYDROcodone/ACETAMINOPHEN) PO ONE (15:45)
--- NOTE | 2020-09-13 15:58 | REPVR ---
PROCEDURE INFORMATION: Exam: XR Abdomen, 1 View Exam date and time: 09/13/2020 3:34 PM Age: 35 years old Clinical indication: Abdominal pain; Additional info: Luq pain, splenomegaly TECHNIQUE: Imaging protocol: XR of the abdomen. Views: Frontal supine view of the abdomen. 1 View. COMPARISON: CT ABD PELVIS WITH CONTRAST 07/09/2020 8:53 PM FINDINGS: Gastrointestinal tract: Non-obstructive bowel gas pattern. Bones/joints: No acute osseus lesions or fractures. Soft tissues: Unremarkable. No radiopaque foreign body. IMPRESSION: No acute findings. Electronically signed by: Ascencion Souza On 09/13/2020 15:57:56 PM
--- NOTE | 2020-09-13 16:45 | REPVR ---
PROCEDURE INFORMATION: Exam: US Abdomen; Limited Exam date and time: 09/13/2020 4:24 PM Age: 35 years old Clinical indication: Abdominal pain; Acute; Additional info: Luq pain, splenomegaly TECHNIQUE: Imaging protocol: US abdomen. Real time ultrasound with image documentation. Limited exam focused on the region of clinical interest. COMPARISON: CT ABD PELVIS WITH CONTRAST 07/09/2020 8:53 PM FINDINGS: Left kidney: Partially visualized left kidney is unremarkable. Spleen: Mild prominence of the spleen, measuring 13.2 x 13.5 x 5.8 cm. Multifocal linear hypoechoic areas within the spleen, the largest of which is slightly wedge-shaped. IMPRESSION: 1. Multifocal linear hypoechoic areas within the spleen, the largest of which is slightly wedge-shaped. Splenic infarcts cannot be excluded. Recommend correlation with CT or MRI abdomen with IV contrast. 2. Mild prominence of the spleen. Electronically signed by: Ascencion Souza On 09/13/2020 16:45:42 PM
[2020-09-13] MEDS ORDERED: NORC1TAB7 PO (17:21)
[2020-09-13 17:27] VITALS: BP 105/65
== END 2020-09-13 17:33 | disposition home or self-care (01) ==
LOC: M ED 12:37
DX: D73.5 Infarction of spleen (principal); R10.9 Unspecified abdominal pain; G89.29 Other chronic pain; R16.1 Splenomegaly, not elsewhere classified; F17.200 Nicotine dependence, unspecified, uncomplicated; Z88.0 Allergy status to penicillin; Z88.1 Allergy status to other antibiotic agents; Z79.899 Other long term (current) drug therapy; Z79.01 Long term (current) use of anticoagulants
CPT/HCPCS: 36415; 74018; 76705; 80048; 80076; 81001; 83690; 84703; 85025; 99284; Q0162

== ENCOUNTER 2020-09-16 17:32 | Emergency (ER) | payer OTHER ==
[~2020-09-16] VITALS: Ht 154.9 cm; Wt 62.0 kg
[~2020-09-16 17:32] MED LIST changes: +MYRB25TA PO
[2020-09-16] MEDS ORDERED: GI COCKTAIL 50ML BTL(HYOSCYAMINE/MAALOX/LIDOCAINE VISCOUS)(1:3:1) PO ONE (18:00)
[2020-09-16 18:11] LABS: BASO # 0.1 10^3/uL (0.0-0.2); BASO % 0.4 % (0.0-1.0); EOS % 0.3 % (0.0-3.0); HEMATOCRIT 36.2 % (36.0-47.0); HEMOGLOBIN 11.9 g/dl (12.0-15.5); LYMPH # 2.3 10^3/uL (1.5-5.0); LYMPH % 17.3 % (24.0-44.0); MEAN CORPUSCULAR HEMOGLOBIN 31.4 pg (27.0-33.0); MEAN CORPUSCULAR HGB CONC 32.9 g/dl (32.0-36.5); MEAN CORPUSCULAR VOLUME 95.5 fl (80.0-96.0); MONO # 0.8 10^3/uL (0.0-0.8); MONO % 5.9 % (0.0-5.0); NEUTROPHILS % 75.4 % (36.0-66.0); PLATELET COUNT, AUTOMATED 262 10^3/uL (150-450); RED BLOOD COUNT 3.79 10^6/uL (4.00-5.40); WHITE BLOOD COUNT 13.3 10^3/uL (4.0-10.0)
[2020-09-16 18:21] LABS: INR 1.11; PROTHROMBIN TIME 14.6 SECONDS (12.5-14.3)
[2020-09-16 18:22] LABS: PARTIAL THROMBOPLASTIN TIME 34.1 SECONDS (24.2-38.5)
[2020-09-16] MEDS ORDERED: ISOVUE-370 76% 100ML VIAL As Ordered ONE (18:29)
[2020-09-16] MEDS ORDERED: NS 1,000 ML IV ONE (18:30)
[2020-09-16 18:52] LABS: ALBUMIN 3.6 GM/DL (3.2-5.2); ALT/SGPT 25 U/L (12-78); BILIRUBIN,DIRECT < 0.1 MG/DL (0.0-0.2); BILIRUBIN,TOTAL 0.3 MG/DL (0.2-1.0); CK-MB VALUE MASS < 1.0 NG/ML (<3.6); CPK CREATINE PHOSPHOKINASE 62 U/L (26-192); FREE T4 1.22 NG/DL (0.76-1.46); MAGNESIUM LEVEL 1.9 MG/DL (1.8-2.4); MB/CK RELATIVE INDEX 1.61 (< OR =4); THYROID STIMULATING HORMONE 0.359 uIU/ML (0.358-3.740); TOTAL PROTEIN 7.5 GM/DL (6.4-8.2); TROPONIN I < 0.02 NG/ML (< 0.10)
--- NOTE | 2020-09-16 19:30 | REPVR ---
PROCEDURE INFORMATION: Exam: CT Head Without Contrast Exam date and time: 09/16/2020 6:39 PM Age: 35 years old Clinical indication: Syncope and collapse TECHNIQUE: Imaging protocol: Computed tomography of the head without contrast. Axial and coronal reformatted images were created and reviewed. Radiation optimization: All CT scans at this facility use at least one of these dose optimization techniques: automated exposure control; mA and/or kV adjustment per patient size (includes targeted exams where dose is matched to clinical indication); or iterative reconstruction. COMPARISON: CT IAC W/O CONTRAST 05/10/2019 5:22 PM FINDINGS: Brain: No CT evidence of acute intracranial hemorrhage or acute territorial infarction. No significant mass effect or midline shift. Basal cisterns patent. Cerebral ventricles: Normal in size and configuration. Bones/joints: No acute osseous abnormality. Paranasal sinuses: Unremarkable. No fluid levels. Mastoid air cells: Mild opacification of the dependent right greater than left mastoid air cells. Soft tissues: Grossly unremarkable. IMPRESSION: 1. No CT evidence of acute intracranial pathology. 2. Additional findings, as above. Electronically signed by: Hossein Cabrera On 09/16/2020 19:29:44 PM
--- NOTE | 2020-09-16 19:40 | REPVR ---
PROCEDURE INFORMATION: Exam: CT Angiography Chest With Contrast Exam date and time: 09/16/2020 6:39 PM Age: 35 years old Clinical indication: Other: Syncope TECHNIQUE: Imaging protocol: Computed tomographic angiography of the chest with intravenous contrast. 3D rendering (Not supervised by radiologist): MIP and/or 3D reconstructed images were created by the technologist. Radiation optimization: All CT scans at this facility use at least one of these dose optimization techniques: automated exposure control; mA and/or kV adjustment per patient size (includes targeted exams where dose is matched to clinical indication); or iterative reconstruction. Contrast material: ISOVUE 370; Contrast volume: 100 ml; Contrast route: INTRAVENOUS (IV); COMPARISON: CT ANGIO CHEST 07/22/2020 2:04 PM FINDINGS: Pulmonary arteries: There are no pulmonary emboli. Aorta: There is no aortic dissection or aneurysm. Lungs: Bibasilar atelectasis. Bilateral noncalcified lung nodules measuring up to 7.5 mm in the right lower lobe and 9 mm in the left lower lobe (left lobe lesion decreased in size in comparison to the prior study). Remaining findings are stable in comparison to the prior study of 07/22/2020. Left lower lobe blebs demonstrated. Pleural space: Unremarkable. No pneumothorax. No pleural effusion. Heart: Unremarkable. No cardiomegaly. No pericardial effusion. Lymph nodes: Confluent mediastinal lymphadenopathy. Bones/joints: Unremarkable. No acute fracture. Soft tissues: Diffuse splenomegaly with multiple low-attenuation foci demonstrated within the spleen. Findings stable in comparison to prior studies. Otherwise unremarkable. IMPRESSION: 1. Bilateral noncalcified lung nodules measuring up to 7.5 mm in the right lower lobe and 9 mm in the left lower lobe (left lobe lesion decreased in size in comparison to the prior study). Remaining findings are stable in comparison to the prior study of 07/22/2020. For patients at low risk (minimal or absent history of smoking and of other known risk factors), recommend CT Chest at 3-6 months, then consider CT Chest at 18-24 months. For patients at high risk (history of smoking or of other known risk factors), recommend CT Chest at 3-6 months, then CT Chest at 18-24 months. (Reference: Jhonathan) 2. There is no aortic dissection or aneurysm. 3. There are no pulmonary emboli. 4. Confluent mediastinal lymphadenopathy. REFERENCES: Jhonathan Tate, et al. Guidelines for Management of Incidental Pulmonary Nodules Detected on CT Images: From the Fleischner Society 2017. Radiology. 2017;284(1):228-243. Electronically signed by: Santo Marina On 09/16/2020 19:40:12 PM
--- NOTE | 2020-09-16 19:45 | REPVR ---
PROCEDURE INFORMATION: Exam: CT Abdomen And Pelvis With Contrast Exam date and time: 09/16/2020 6:39 PM Age: 35 years old Clinical indication: Other: Syncope/splenic infarct TECHNIQUE: Imaging protocol: Computed tomography of the abdomen and pelvis with intravenous contrast. Radiation optimization: All CT scans at this facility use at least one of these dose optimization techniques: automated exposure control; mA and/or kV adjustment per patient size (includes targeted exams where dose is matched to clinical indication); or iterative reconstruction. Contrast material: ISOVUE 370; Contrast volume: 100 ml; Contrast route: INTRAVENOUS (IV); COMPARISON: CT ABD PELVIS WITH CONTRAST 07/09/2020 8:53 PM FINDINGS: Liver: There is a diffuse decrease in hepatic parenchymal density, consistent with steatosis. Gallbladder and bile ducts: Normal. No calcified stones. No ductal dilation. Pancreas: Normal. No ductal dilation. Spleen: There is mild splenomegaly with a maximum span of 13 centimeters. Redemonstration of numerous cystic foci in the spleen as well as geographic wedge-shaped hypoattenuating regions throughout the spleen, the latter suspect for the presence of multiple splenic infarcts. Finding has been noted previously. Adrenals: Normal. No mass. Kidneys and ureters: Normal. No hydronephrosis. Stomach and bowel: Unremarkable. No obstruction. No mucosal thickening. Appendix: No evidence of appendicitis. Intraperitoneal space: Unremarkable. No free air. No significant fluid collection. Vasculature: Unremarkable. No abdominal aortic aneurysm. Lymph nodes: Unremarkable. No enlarged lymph nodes. Urinary bladder: Unremarkable as visualized. Reproductive: Unremarkable as visualized. Bones/joints: Unremarkable. No acute fracture. Soft tissues: Unremarkable. IMPRESSION: 1. There is a diffuse decrease in hepatic parenchymal density, consistent with steatosis. 2. There is mild splenomegaly with a maximum span of 13 centimeters. Redemonstration of numerous cystic foci in the spleen as well as geographic wedge-shaped hypoattenuating regions throughout the spleen, the latter suspect for the presence of multiple splenic infarcts. Finding has been noted previously. Electronically signed by: Santo Marina On 09/16/2020 19:45:43 PM
[2020-09-16 20:30] VITALS: BP 103/67
--- NOTE | 2020-09-16 20:53 | ECGEPIP ---
[facility] - ED Test Date: 2020-09-16 Pat Name: QIANA SMITH Department: Room: - Gender: Female Cafe Attendant: JCaro : 1985 Requested By: JOHN Delgado Order Number: [id number] Reading MD: Mary Villafana Measurements Intervals [place] Rate: 82 P: 57 LA: 175 QRS: 31 QRSD: 88 T: 30 QT: 363 QTc: 424 Interpretive Statements SINUS RHYTHM INCREASED RATE 03/03/20 Electronically Signed on 09-16-2020 20:53:30 EDT by Mary Villafana
== END 2020-09-16 20:56 | disposition home or self-care (01) ==
LOC: M ED 17:32
DX: R55 Syncope and collapse (principal); R91.8 Other nonspecific abnormal finding of lung field; R93.5 Abnormal findings on diagnostic imaging of other abdominal regions, including retroperitoneum; I50.30 Unspecified diastolic (congestive) heart failure; D73.5 Infarction of spleen; F17.200 Nicotine dependence, unspecified, uncomplicated; Z88.0 Allergy status to penicillin; Z88.1 Allergy status to other antibiotic agents; Z79.899 Other long term (current) drug therapy; Z79.01 Long term (current) use of anticoagulants
CPT/HCPCS: 70450; 71275; 74177; 80047; 80076; 82550; 82553; 83735; 84439; 84443; 84484; 84702; 85025; 85610; 85730; 93005; 93041; 94760; 96360; 96361; 99285; Q9967

== ENCOUNTER → 2020-09-20 | Outpatient (CLI) | payer OTHER ==
[2020-09-20 16:57] LABS: BASO # 0.1 10^3/uL (0.0-0.2); BASO % 0.3 % (0.0-1.0); EOS # 0.1 10^3/uL (0.0-0.5); EOS % 0.4 % (0.0-3.0); HEMATOCRIT 41.1 % (36.0-47.0); HEMOGLOBIN 13.1 g/dl (12.0-15.5); LYMPH # 1.1 10^3/uL (1.5-5.0); LYMPH % 5.9 % (24.0-44.0); MEAN CORPUSCULAR HGB CONC 31.9 g/dl (32.0-36.5); MEAN CORPUSCULAR VOLUME 97.4 fl (80.0-96.0); MONO # 1.3 10^3/uL (0.0-0.8); NEUTROPHILS # 15.9 10^3/uL (1.5-8.5); NEUTROPHILS % 85.6 % (36.0-66.0); PLATELET COUNT, AUTOMATED 309 10^3/uL (150-450); RED BLOOD COUNT 4.22 10^6/uL (4.00-5.40); WHITE BLOOD COUNT 18.6 10^3/uL (4.0-10.0)
[2020-09-20 17:23] LABS: ALBUMIN 3.6 GM/DL (3.2-5.2); ALT/SGPT 24 U/L (12-78); BILIRUBIN,TOTAL 0.3 MG/DL (0.2-1.0); BLOOD UREA NITROGEN 7 MG/DL (7-18); CALCIUM LEVEL 8.9 MG/DL (8.5-10.1); CARBON DIOXIDE LEVEL 26 MEQ/L (21-32); CHLORIDE LEVEL 104 MEQ/L (98-107); FERRITIN 181 NG/ML (8-252); GLOMERULAR FILTRATION RATE > 60.0 (>60); GLUCOSE, FASTING 83 MG/DL (70-100); IRON (FE) 54 UG/DL (50-170); PERCENT SATURATION 21.6 % (13.2-45.0); POTASSIUM SERUM 4.2 MEQ/L (3.5-5.1); SODIUM LEVEL 137 MEQ/L (136-145); TOTAL IRON BINDING CAPACITY 250 UG/DL (250-450); TOTAL PROTEIN 7.5 GM/DL (6.4-8.2)
[2020-09-20 17:37] LABS: HEPATITIS B SURFACE ANTIBODY POSITIVE (POSITIVE)
[2020-09-20 17:46] LABS: HEPATITIS B SURFACE ANTIGEN NEGATIVE (NEGATIVE)
[2020-09-20 18:15] LABS: HEPATITIS B CORE ANTIBODY IGM NEGATIVE (NEGATIVE); HEPATITIS C VIRUS ABY INDEX 0.1 INDEX (<0.8)
[2020-09-22 16:07] LABS: ANTI-MITOCHONDRIAL ANTIBODY <20.0 Units (0.0-20.0); ANTINUCLEAR ANTIBODIES DIRECT Negative (Negative); LIVER-KIDNEY MICROSOMAL ABY <20.1 Units (0.0-20.0); TISSUE TRANSGLUTAMINASE IgA <2 U/mL (0-3)
== END ==
LOC: M WUC 12:51
PROVIDERS: ATTEND Internal Medicine Gastroenterology
DX: R16.2 Hepatomegaly with splenomegaly, not elsewhere classified (principal)

== ENCOUNTER → 2020-11-01 | Outpatient (CLI) | payer OTHER ==
[~2020-11-01] MED LIST changes: -CLIN300C5; +CLIN300C6; +PRED10TA2 PO; +PROT1TAB2 PO
[2020-11-01 17:58] LABS: BASO # 0.1 10^3/uL (0.0-0.2); BASO % 0.4 % (0.0-1.0); EOS # 0.1 10^3/uL (0.0-0.5); EOS % 0.6 % (0.0-3.0); HEMATOCRIT 43.1 % (36.0-47.0); HEMOGLOBIN 13.6 g/dl (12.0-15.5); LYMPH # 2.1 10^3/uL (1.5-5.0); LYMPH % 13.5 % (24.0-44.0); MEAN CORPUSCULAR HEMOGLOBIN 30.8 pg (27.0-33.0); MEAN CORPUSCULAR HGB CONC 31.6 g/dl (32.0-36.5); MEAN CORPUSCULAR VOLUME 97.5 fl (80.0-96.0); MONO # 1.1 10^3/uL (0.0-0.8); MONO % 6.9 % (0.0-5.0); NEUTROPHILS # 12.1 10^3/uL (1.5-8.5); PLATELET COUNT, AUTOMATED 277 10^3/uL (150-450); RED BLOOD COUNT 4.42 10^6/uL (4.00-5.40); WHITE BLOOD COUNT 15.5 10^3/uL (4.0-10.0)
[2020-11-01 19:39] LABS: ALBUMIN 3.9 GM/DL (3.2-5.2); ALT/SGPT 23 U/L (12-78); BILIRUBIN,TOTAL 0.4 MG/DL (0.2-1.0); BLOOD UREA NITROGEN 10 MG/DL (7-18); CALCIUM LEVEL 9.2 MG/DL (8.5-10.1); CARBON DIOXIDE LEVEL 30 MEQ/L (21-32); CHLORIDE LEVEL 103 MEQ/L (98-107); CREATININE FOR GFR 0.68 MG/DL (0.55-1.30); GLOMERULAR FILTRATION RATE > 60.0 (>60); GLUCOSE, FASTING 104 MG/DL (70-100); POTASSIUM SERUM 4.1 MEQ/L (3.5-5.1); RHEUMATOID FACTOR QUANT < 10.0 IU/ML (<15.0); SODIUM LEVEL 136 MEQ/L (136-145); TOTAL PROTEIN 7.5 GM/DL (6.4-8.2)
[2020-11-01 20:14] LABS: ERYTHROCYTE SEDIMENTATION RATE 31 mm/hr (0-20)
[2020-11-04 00:06] LABS: ANTINUCLEAR ANTIBODIES DIRECT Negative (Negative)
== END ==
LOC: M PLALAB 14:29
PROVIDERS: ATTEND Internal Medicine Rheumatology
DX: M05.79 Rheumatoid arthritis with rheumatoid factor of multiple sites without organ or systems involvement (principal)

== ENCOUNTER → 2021-01-04 | Outpatient (REF) | payer OTHER | LOC: M LAB REF 15:32 | PROVIDERS: ATTEND Family Medicine | DX: J06.9 Acute upper respiratory infection, unspecified (principal) ==

== ENCOUNTER → 2021-05-28 | Outpatient (CLI) | payer OTHER ==
[~2021-05-28] MED LIST changes: +OMEP40CA4 PO; -OMEP40CA97 PO
--- NOTE | 2021-05-29 08:04 | REP ---
INDICATION: OTHER NON SPECIFIC ABNORMAL FINDING OF LUNG FIELD COMPARISON: 09/16/2020 TECHNIQUE: Axial noncontrast images from the thoracic inlet to the upper abdomen with coronal and sagittal reformations. This CT examination was performed using the following dose reduction techniques: Automated exposure control, adjustment of mA and/or kv according to the patient's size, and use of iterative reconstruction technique. FINDINGS: The lung aquino are relatively well aerated with mild posterior basilar dependent changes. No consolidation, effusion, or pneumothorax. A grouping of approximately 3 noncalcified nodular densities in the right posterior sulcus with the largest nodule measuring approximately 4 mm (series 201; images 73-79) and a single left lower lobe subpleural nodule measuring 3 mm (series 201; image 61) are identified and appear relatively unchanged and certainly without increase in size or quantity. Tracheobronchial tree is patent. Further evaluation of the mediastinum demonstrates normal thoracic aorta, pulmonary vasculature, and heart/pericardium. Current noncontrast evaluation of the upper abdomen demonstrates splenomegaly with a 2.7 cm low-density lesion along the superior pole which is relatively new and a small subtle subcapsular low-density area which is decreased in size and consistent with a resolving infarct as per prior examination. There now appears to be a new 4.3 cm round low-density lesion within the posterior segment right hepatic lobe with surrounding subtle edema which represents a obvious new finding as compared to prior examination. This is concerning for possible hepatic abscess and less likely malignancy. IMPRESSION: 1. Lung aquino are relatively normal/stable with small nodules in the bilateral lower lobes again noted and essentially without progression. 2. Significant findings involving the spleen and liver as described above concerning for possible abscesses. Less likely differential may include malignancy. Clinical correlation is recommended and pre and postcontrast CT of the abdomen/pelvis is recommended for further investigation if necessary. <Electronically signed by Javid Elizondo > 05/29/21 0800
== END ==
LOC: M RAD 17:02
PROVIDERS: ATTEND Internal Medicine Pulmonary Disease
DX: R91.8 Other nonspecific abnormal finding of lung field (principal)

== ENCOUNTER 2021-06-04 14:09 | Inpatient (IN) | payer OTHER ==
[~2021-06-04] VITALS: Ht 154.9 cm; Wt 62.5 kg
[2021-06-04] MEDS ORDERED: MEROPENEM INJ 1 GM in IV 1 EA IV ONE (15:55)
[2021-06-04] MEDS ORDERED: NS 1,000 ML IV ONE (17:05)
[2021-06-04] MEDS ORDERED: NS 1,000 ML IV SCH (17:05)
[2021-06-04] MEDS ORDERED: PERCOCET 5MG/325MG TAB PO ONE (17:15)
[2021-06-04 17:17] LABS: BASO % 0.2 % (0.0-1.0); HEMATOCRIT 38.6 % (36.0-47.0); HEMOGLOBIN 12.6 g/dl (12.0-15.5); LYMPH # 1.1 10^3/uL (1.5-5.0); LYMPH % 8.3 % (24.0-44.0); MEAN CORPUSCULAR HEMOGLOBIN 29.6 pg (27.0-33.0); MEAN CORPUSCULAR HGB CONC 32.6 g/dl (32.0-36.5); MEAN CORPUSCULAR VOLUME 90.6 fl (80.0-96.0); MONO # 0.3 10^3/uL (0.0-0.8); MONO % 2.1 % (2.0-8.0); NEUTROPHILS % 88.8 % (36.0-66.0); PLATELET COUNT, AUTOMATED 314 10^3/uL (150-450); RED BLOOD COUNT 4.26 10^6/uL (4.00-5.40); WHITE BLOOD COUNT 13.5 10^3/uL (4.0-10.0)
[2021-06-04 17:25] LABS: INR 0.91; PROTHROMBIN TIME 12.4 SECONDS (12.5-14.3)
[2021-06-04 17:32] LABS: ALBUMIN 3.5 GM/DL (3.2-5.2); ALT/SGPT 14 U/L (12-78); BILIRUBIN,DIRECT < 0.1 MG/DL (0.0-0.2); BILIRUBIN,TOTAL 0.2 MG/DL (0.2-1.0); BLOOD UREA NITROGEN 6 MG/DL (7-18); C REACTIVE PROTEIN QUANTITATIV 6.41 MG/DL (0.00-0.30); CALCIUM LEVEL 8.6 MG/DL (8.5-10.1); CARBON DIOXIDE LEVEL 29 MEQ/L (21-32); CHLORIDE LEVEL 103 MEQ/L (98-107); CREATININE FOR GFR 0.52 MG/DL (0.55-1.30); GLOMERULAR FILTRATION RATE > 60.0 (>60); GLUCOSE, FASTING 108 MG/DL (70-100); LIPASE 53 U/L (73-393); SODIUM LEVEL 136 MEQ/L (136-145); TOTAL PROTEIN 7.9 GM/DL (6.4-8.2)
[2021-06-04] MEDS ORDERED: predniSONE 10 MG TAB PO PRN (17:45)
[2021-06-04] MEDS ORDERED: PRED10TA2 PO (17:46)
[2021-06-04] MEDS ORDERED: OREN125I2 SC (17:46)
[2021-06-04] MEDS ORDERED: ISOVUE-370 76% 100ML VIAL As Ordered ONE (17:57)
[2021-06-04 18:09] LABS: CA19-9 TUMOR MARKER,CARBOHYDRA 6.2 U/ML (<35.0)
--- NOTE | 2021-06-04 18:14 | HPEPDOC ---
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 [place]jon after CT chest done for surveillance of pulm nodules noted liver abnormality w ?possible abscess.pt has had 2-3days ruq abd pain worsened w decreased appetite and night sweats, but no documented fevers. 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 empiric meropenem. ID consulted. CT abd /pelvis pre and post contrast. liver us in am npo after midnight. Interventional Radiology consulted to review CT abd/pelvis to see if liver can be biopsied-[facility]. Vital Signs Vital Signs Date Time Temp Pulse Resp B/P (MAP) Pulse Ox O2 Delivery O2 Flow Rate FiO2 06/04/21 17:53 97 61 Room Air 06/04/21 16:56 06/04/21 14:09 98.6 71 Laboratory Data Labs 24H Laboratory Tests 2 06/04/21 16:40: Immature Granulocyte % (Auto) 0.6, Neutrophils (%) (Auto) 88.8H, Lymphocytes (%) (Auto) 8.3L, Monocytes (%) (Auto) 2.1, Eosinophils (%) (Auto) 0.0, Basophils (%) (Auto) 0.2, Neutrophils # (Auto) 12.0H, Lymphocytes # (Auto) 1.1L, Monocytes # (Auto) 0.3, Eosinophils # (Auto) 0.0, Basophils # (Auto) 0.0, Nucleated Red Blood Cells % (auto) 0.0, Prothrombin Time 12.4, Prothromb Time International Ratio 0.91, Anion Gap 4L, Glomerular Filtration Rate > 60.0, Lactic Acid Level 0.8, Calcium Level 8.6, Total Bilirubin 0.2, Direct Bilirubin < 0.1, Aspartate Amino Transf (AST/SGOT) 15, Alanine Aminotransferase (ALT/SGPT) 14, Alkaline Phosphatase 165H, C-Reactive Protein, Quantitative 6.41H, Total Protein 7.9, Albumin 3.5, Albumin/Globulin Ratio 0.8L, Lipase 53L, Carcinoembryonic Antigen 2.4 CBC/BMP Laboratory Tests 06/04/21 16:40 Microbiology Microbiology 06/04/21 Blood Culture, Received Pending 06/04/21 Blood Culture, Received Pending Home Medications Scheduled Abatacept (Orencia Clickjet) 125 Mg/1 Ml Auto.injct, 125 MG SC QWEEK THURSDAYS Fluoxetine Hcl (Fluoxetine HCl) 20 Mg Capsule, 60 MG PO DAILY Scheduled PRN Alprazolam (Alprazolam) 1 Mg Tablet, 1 MG PO BID PRN for ANXIETY Prednisone (Prednisone) 10 Mg Tablet, 10 MG PO DAILY PRN for RA FLARE Allergies Coded Allergies: Penicillins (Verified Allergy, Intermediate, THROAT CLOSING , 09/13/20) levofloxacin (Verified Allergy, Intermediate, VOMITING AND CHEST PAIN, 09/13/20) A-FIB/CHADSVASC A-FIB History Current/History of A-Fib/PAF?: No Current PO Anticoag Therapy: No Age/Risk Factor Scoring CHADSVASC: CHADSVASC Response (Comments) Value Age Risk Factor Age < 65 years old 0 Gender Risk Factor Female 1 Hx of CHF No 0 Hx of HTN No 0 Hx of Stroke/TIA/or VTE No 0 Hx of Diabetes No 0 Hx of Vascular Disease No 0 Total 1 Treatment Treatment ordered: NONE ERROL RIOS MD Jun 04, 2021 18:14
--- NOTE | 2021-06-04 18:38 | HPE ---
HISTORY AND PHYSICAL DATE OF ADMISSION: 06/04/2021 CHIEF COMPLAINT: Abnormal CT chest with possible liver abscess, sent by Dr. Morejon. HISTORY OF PRESENT ILLNESS: A 35-year-old female with a history of splenomegaly, anticardiolipin antibody positive, on chronic Eliquis, rheumatoid arthritis, lower extremity cellulitis, active tobacco user, being treated for rheumatoid arthritis, previously on methotrexate. Had a course of prednisone and on Orencia, managed by her instrument installer with prior fatty liver managed by Dr. Gutierrez, and splenic infarcts, evaluated by Dr. An. Presented to the emergency room with 3-day history of right upper quadrant abdominal pain on and off, stabbing in nature. Lasts for a few hours, worse in the past 2 days, and has been constant. Patient has been having stabbing pain for the past 2 days that has been constant, lasting for several hours. She has had some night sweats without documented fever or chills. No diarrhea, dysuria, urgency, frequency. Denies any cough, shortness of breath. Denies constipation, diarrhea, back pain. Pain is better when she lies still, sitting up, worse when she moves from side and says that she feels like she is , and it is uncomfortable. Patient had been on 10 mg of prednisone twice a day for her rheumatoid arthritis and has been compliant with her Eliquis for her anticardiolipin antibody. Hospitalist was asked to admit the patient for abnormal findings with questionable liver abscess. Previous CT abdomen and pelvis 09/16/2020 shows hepatic steatosis, mild splenomegaly, maximum span of 13 cm with multiple splenic infarcts. MEDICAL HISTORY: 1. Splenomegaly with splenic infarcts. 2. Anticardiolipin IgM antibody positive, on chronic Eliquis. 3. Lower extremity cellulitis. 4. Rheumatoid arthritis. 5. Fatty liver with hepatic steatosis on previous CT in 2019. 6. Anxiety and depression. 7. Partial hysterectomy. 8. Noncalcified pulmonary nodules, followed by Dr. Morejon. PAST SURGICAL HISTORY: 1. Tonsillectomy as a child. 2. Strabismus reversal surgery as a child. ALLERGIES: PENICILLIN, causing swelling of her lips and tongue. LEVAQUIN, causing chest pressure. HOME MEDICATIONS: - Xanax 1 mg twice a day as needed for anxiety - fluoxetine 60 mg daily - prednisone 10 mg twice a day - Orencia 125 mg subcutaneous every week SOCIAL HISTORY: Actively smokes cigarettes, half a pack a day since age of 15. Social alcohol use, maybe one drink a month. Housewife. Full code. Healthcare proxy is Gian [place], contact # [phone]. FAMILY HISTORY: Mother and father alive, both in their 50s. Father has hypertension. Mother has rheumatoid arthritis, diabetes, and hypertension. REVIEW OF SYSTEMS: Per history of present illness (HPI). A 10-point system otherwise negative. PHYSICAL EXAMINATION: Temperature 98.6, pulse 71, respiratory rate 20, blood pressure 134/76, 98% on room air. GENERAL: Patient is awake, alert, oriented to person, place, and time. Anicteric. No jaundice. No pallor or icterus. No respiratory distress. Speaks in full sentences. Face is symmetric. Tongue is midline. Moist mucous membranes. No jugular venous distention (JVD), thyromegaly, or cervical lymphadenopathy. LUNGS: Clear to auscultation. No wheezing, rales, or rhonchi. HEART: S1, S2, sinus rhythm. No murmurs, rubs, or gallops. ABDOMEN: Soft, tender in right upper quadrant. Mild hepatosplenomegaly. Distended, doughy. No rebound or guarding. EXTREMITIES: No cyanosis, clubbing, or pitting edema. LABORATORY DATA: Respiratory panel pending. White count 13.5, hemoglobin 12, hematocrit 38, platelet count 314. Sodium 136, potassium 4, chloride 103, bicarbonate 29, BUN 6, creatinine 0.52, glucose 108. INR 0.91. PT 12.4. Urinalysis: No sample has been sent. Immunoglobulin complement level still pending. Blood cultures pending. IMAGING STUDIES: Chest CT 05/28/2021: Lung aquino are well aerated. No consolidation. Three noncalcified nodular densities in the right posterior sulcus, largest 4 mm. Single left lower subpleural nodule, 3 mm, unchanged. Splenomegaly with 2.7 cm low-density lesion along the superior pole, new. Small subtle low-density area, decreased in size with resolving infarct from prior exam. New 4.3 cm low-density lesion, posterior segment, right hepatic lobe with edema, representing new findings, concerning for possible abscess and less likely malignancy. Recommend pre and post contrast CT abdomen and pelvis for further investigation if necessary. ASSESSMENT AND PLAN: A 35-year-old on chronic Orencia for rheumatoid arthritis, on chronic Eliquis for anticardiolipin IgM antibody positive, splenomegaly with splenic infarcts, fatty liver, partial hysterectomy, anxiety and depression, presents with an abnormal CT chest finding for pulmonary nodules, presents with 3-day history of worsening right upper quadrant abdominal pain described as stabbing, now constant without fever, chills but complains of night sweats. IMPRESSION: 1. Abnormal CT showing 4.3 cm lesion in the posterior right hepatic lobe with edema, rule out abscess. Will obtain a CT abdomen and pelvis pre and post contrast to further delineate this abnormality. She has been afebrile but complains of night sweats. She will be empirically treated with intravenous (IV) meropenem due to penicillin and Levaquin allergy. IV fluids. Pain control with Percocet and morphine. Patient is immunocompromised due to chronic Orencia use and has recently been on prednisone 10 mg twice a day. Infectious disease specialist, Dr. Jamaal Arredondo, has been consulted to de-escalate antibiotics as needed. Two sets of blood cultures have been sent. Since the patient is on Eliquis for anticardiolipin antibody positive, after CT abdomen and pelvis has been obtained will discuss with interventional radiology if it is possible to do a biopsy of the liver lesion to determine the etiology of this abnormality. 2. Anticardiolipin antibody positive, on chronic Eliquis, which is currently being held until CT abdomen and pelvis report is available to determine if we need to do a biopsy of the liver. Will have to discuss with interventional radiology. 3. Rheumatoid arthritis. Currently on prednisone 10 mg twice a day. Monitor for adrenal insufficiency. Per Dr. Alonzo, patient does not appear to be severely immunocompromised at this time, and it would be safe to continue the prednisone if needed. 4. Splenic infarcts secondary to anticardiolipin IgM antibody positive. Holding patient's Eliquis until decision can be made if patient will be eligible for biopsy of the liver lesion. 5. Anxiety and depression. While the patient is on meropenem will need to wait. MTDD
--- NOTE | 2021-06-04 19:09 | REPVR ---
PROCEDURE INFORMATION: Exam: CT Abdomen Without And With Contrast Exam date and time: 06/04/2021 6:07 PM Age: 35 years old Clinical indication: Other: ? Liver abscess TECHNIQUE: Imaging protocol: Computed tomography images of the abdomen without and with intravenous contrast. Radiation optimization: All CT scans at this facility use at least one of these dose optimization techniques: automated exposure control; mA and/or kV adjustment per patient size (includes targeted exams where dose is matched to clinical indication); or iterative reconstruction. Contrast material: ISOVUE 370; Contrast volume: 100 ml; Contrast route: INTRAVENOUS (IV); COMPARISON: CT ABD/PEL W/IV CONTRAST ONLY 09/16/2020 6:32 PM FINDINGS: Liver: Thick-walled 5.2 cm cystic mass demonstrated in the posterior segment of the right lobe of the liver. Lesion is hypodense on precontrast images surrounded by a lucent halo consistent with edema, demonstrates mild wall enhancement on arterial phase postcontrast imaging with a central component remaining cystic on precontrast arterial and equilibrium phase imaging. Gallbladder and bile ducts: Normal. No calcified stones. No ductal dilation. Pancreas: Normal. No ductal dilation. Spleen: There is mild to moderate splenomegaly with a irregular cystic lesion in the medial aspect of the spleen demonstrating similar precontrast and postcontrast enhancement characteristics to the hepatic focus consistent with a splenic abscess. Several small splenic hypodensities are demonstrated as well likely representing satellite abscesses. Adrenals: Normal. No mass. Kidneys and ureters: Normal. No hydronephrosis. Stomach and bowel: Visualized stomach and bowel are unremarkable. No obstruction. No mucosal thickening. Intraperitoneal space: Unremarkable. No free air. No significant fluid collection. Lymph nodes: Unremarkable. No enlarged lymph nodes. Vasculature: Unremarkable. No abdominal aortic aneurysm. Bones/joints: Unremarkable. No acute fracture. No dislocation. Soft tissues: Otherwise unremarkable. IMPRESSION: 1. Findings consistent with a large abscess in the posterior segment right lobe of the liver. Cystic metastasis is a less likely possibility. 2. Multiple probable splenic abscesses as described above. Cystic neoplasm is considered less likely. Electronically signed by: Santo Marina On 06/04/2021 19:09:38 PM
[2021-06-04] MEDS: NICOTINE 14 MG/24 HR TRANSDERMAL TD SCH (19:13)
[2021-06-04] MEDS: LACTOBACILLUS ACIDOPHILUS CAP (BACID) PO SCH ×2 (19:13→20:56)
[2021-06-04] MEDS: MORPHINE 4 MG/ML 1ML VIAL/SYRINGE (J2270) IV PRN (20:44)
[2021-06-05] MEDS ORDERED: ONDANSETRON 4MG/2ML VIAL IV ONE (02:25)
[2021-06-05] MEDS: MEROPENEM INJ 1 GM in IV 1 EA IV SCH ×3 (02:55→17:45)
[2021-06-05] MEDS: MORPHINE 4 MG/ML 1ML VIAL/SYRINGE (J2270) IV PRN ×3 (02:55→18:28)
[2021-06-05] MEDS: PERCOCET 5MG/325MG TAB PO PRN ×4 (06:30→22:47)
[2021-06-05] MEDS ORDERED: D5W/0.45% SODIUM CHLORIDE 1,000 ML IV SCH (07:00)
[2021-06-05 07:43] LABS: HEMATOCRIT 36.6 % (36.0-47.0); HEMOGLOBIN 11.7 g/dl (12.0-15.5); MEAN CORPUSCULAR HEMOGLOBIN 29.4 pg (27.0-33.0); PLATELET COUNT, AUTOMATED 292 10^3/uL (150-450); RED BLOOD COUNT 3.98 10^6/uL (4.00-5.40); WHITE BLOOD COUNT 10.7 10^3/uL (4.0-10.0)
[2021-06-05 07:54] LABS: INR 0.99; PROTHROMBIN TIME 13.3 SECONDS (12.5-14.3)
[2021-06-05 07:55] LABS: PARTIAL THROMBOPLASTIN TIME 31.7 SECONDS (24.2-38.5)
[2021-06-05 08:06] LABS: ALT/SGPT 13 U/L (12-78); BILIRUBIN,DIRECT 0.1 MG/DL (0.0-0.2); BILIRUBIN,TOTAL 0.2 MG/DL (0.2-1.0); BLOOD UREA NITROGEN 6 MG/DL (7-18); CALCIUM LEVEL 7.8 MG/DL (8.5-10.1); CARBON DIOXIDE LEVEL 30 MEQ/L (21-32); CHLORIDE LEVEL 106 MEQ/L (98-107); CREATININE FOR GFR 0.47 MG/DL (0.55-1.30); GLOMERULAR FILTRATION RATE > 60.0 (>60); GLUCOSE, FASTING 80 MG/DL (70-100); POTASSIUM SERUM 3.3 MEQ/L (3.5-5.1); SODIUM LEVEL 140 MEQ/L (136-145); TOTAL PROTEIN 6.4 GM/DL (6.4-8.2)
--- NOTE | 2021-06-05 08:09 | REPVR ---
PROCEDURE INFORMATION: Exam: US Abdomen, Limited; Right Upper Quadrant Exam date and time: 06/05/2021 6:29 AM Age: 35 years old Clinical indication: Abnormal findings; Abnormal radiologic finding of the abdomen; Radiologic exam and body structure: CT scan; Additional info: ? Liver abscess TECHNIQUE: Imaging protocol: US abdomen. Real time ultrasound with image documentation. Limited exam focused on the right upper quadrant. COMPARISON: Abdomen, limited US 09/13/2020 4:06 PM FINDINGS: Liver: Complex cystic mass within the posterior segment of the right hepatic lobe measuring 5.2 x 4.9 x 4.6 cm. This lesion demonstrates an irregular wall and internal complex fluid/debris and corresponds to the complex cystic mass noted on CT. Liver is otherwise homogeneous. Gallbladder: Unremarkable. No gallstones or gallbladder wall thickening. Common bile duct: Bile ducts are normal in caliber. CBD 3-4 mm. Pancreas: Visualized pancreas is unremarkable. Right kidney: Right kidney measures 10 cm in length. No hydronephrosis. IMPRESSION: Complex cystic mass within the posterior segment of the right hepatic lobe corresponding to the cystic lesion noted on CT. Findings are consistent with a liver abscess. Other cystic liver lesions are not excluded. Electronically signed by: Javid Sher On 06/05/2021 08:09:03 AM
[2021-06-05] MEDS ORDERED: HYDROMORPHONE HCL 0.5 MG/ 0.5 ML SYRINGE (J1170 PER 1) IV ONE (08:15)
[2021-06-05 08:21] LABS: ATYPICAL LYMPH 1 % (0-5); EOSINOPHILS 3 % (0-3); LYMPHOCYTES 27 % (16-44); MONOCYTES 9 % (0-5); NEUTROPHILS 59 % (28-66); PLATELET ESTIMATE NORMAL (NORMAL)
[2021-06-05] MEDS: NICOTINE 14 MG/24 HR TRANSDERMAL TD SCH ×2 (09:00→22:47)
[2021-06-05 09:10] VITALS: BP 104/75
[2021-06-05] MEDS: LACTOBACILLUS ACIDOPHILUS CAP (BACID) PO SCH ×4 (09:37→20:27)
[2021-06-05] MEDS: ALPRAZolam 0.5 MG TAB PO PRN (12:08)
[2021-06-05] MEDS ORDERED: LIDOCAINE 1% MDV 20ML VIAL As Ordered ONE (13:55)
[2021-06-05 14:40] VITALS: BP 106/70
[2021-06-05] MEDS: PROMETHAZINE INJ 25 MG/ML VIAL (J2550) IV PRN (15:05)
--- NOTE | 2021-06-05 16:46 | CR ---
CONSULTATION DATE: 06/04/2021 Patient was seen in the emergency room at 8:00 p.m. REASON FOR CONSULTATION: Asked to consult by Dr. Zimmer for evaluation of liver abscess. HISTORY OF PRESENT ILLNESS: Marta is a pleasant 35-year-old female with a history of rheumatoid arthritis and lupus anticoagulant who has been on treatment for rheumatoid arthritis for the past year with different medications including Remicade, methotrexate and currently on Orencia. The patient was also being followed up by Dr. Morejon for pulmonary nodules and she was scheduled to have a followup chest CT done on May 28, 2021. The chest CT showed small nodules in bilateral lower lobes, unchanged without progression, but significant findings involving the lower edge of spleen concerning for possible abscesses. There was a 4.3 cm low density lesion in the posterior segment of the right hepatic lobe with surrounding edema and splenomegaly with a 2.7 low density lesion, which is new, but another smaller lesion which is consistent with a resolving infarction of the spleen. The patient was seen by Dr. Morejon at her visit on June 04, 2021 and he reviewed the CT with her and advised her to show up to the emergency room for admission. The patient, three days before admission, starting having right upper quadrant pain, which she related to her rheumatoid flare up, and therefore took prednisone 20 mg for the past three days to help with pain with these. She did not have any fever or chills or night sweats. She was having early satiety, right upper quadrant pain, some nausea. No weight loss. She denied any cough or shortness of breath. PAST MEDICAL HISTORY: 1. Fatty liver. 2. Anxiety/depression. 3. Pulmonary nodules being followed up by Dr. Morejon, felt to be probably rheumatoid nodules. 4. Tobacco abuse, 1/2 pack a day since the age of 15. 5. Immunosuppression, currently on Orencia. She does not take prednisone on a routine basis. She only took three days before admission. 6. Anticardiolipin positive IgM on Eliquis for splenic infarction. SOCIAL HISTORY: Patient is a . She is . She has three children. Everyone has been healthy at home. She smokes, drinks socially. She does not work. REVIEW OF SYSTEMS: She had some nausea and anorexia. No vomiting. She has a history of chronic diarrhea, which she describes as related to irritable bowel syndrome, but it does not happen every day. This has not changed. She has no chest pain or shortness of breath. No cough. ALLERGIES: PENICILLIN, LEVOFLOXACIN, causing hives. MEDICATIONS: - Phenergan 25 mg intravenous (IV) every 24 hours - meropenem 1 gram IV every 8 hours - probiotics one tablet by mouth with meals - nicotine patch daily - alprazolam 1 mg twice a day as needed - morphine 4 mg as needed - Percocet 1 tablet by mouth every 4 hours as needed LABORATORY DATA: White count 13.5, hemoglobin 12.6, hematocrit 38.6, platelets 314, 88% neutrophils, 8% lymphocytes, 2% monocytes. Sodium 136, potassium 4, chloride 103, bicarbonate 29, BUN 6, creatinine 0.52, glucose 108, calcium 8.6. Bilirubin 0.2, AST 15, ALT 14, alkaline phosphatase 165. C-reactive protein (CRP) 6.41. Total protein 7.9, albumin 3.5, lipase 53, CEA antigen 2.4, CA-19 6.2. Procalcitonin less than 0.05. IgG 1060. IgA 319. IgM 259, elevated. C3 120, C4 23. Blood cultures, two sets, were ordered and are pending. Respiratory panel is pending. IMAGING DATA: CT abdomen and pelvis showed a thick wall 5.2 cm cystic mass in the posterior segment of the right lower lobe. Patient is hypodense on pre-contrast images surrounded consistent abscess with edema with mild enhancement of the wall with central component that is cystic. Findings consistent with a large abscess. Multiple probable also smaller splenic abscesses. PHYSICAL EXAMINATION: Pleasant, healthy looking female in no acute distress. Temperature 98.2, pulse 71, respirations 20, blood pressure 134/76, oxygen saturation 98% on room air. HEART: Normal S1, S2. No murmurs, rubs or gallops. LUNGS: Clear. No wheezes, rales or rhonchi. ABDOMEN: Soft. Tender in the right upper quadrant and epigastric area. No hepatosplenomegaly appreciated. BACK: No costovertebral angle (CVA) or lumbosacral tenderness. EXTREMITIES: No clubbing, cyanosis or edema. MUSCULOSKELETAL EXAM: No evidence of active sinusitis or joint swelling or effusions. SKIN: No rashes. NEUROLOGIC EXAM: Alert and oriented times three. Motor strength normal. Patient sitting in bed comfortably, having her dinner. IMPRESSION: This is a 35-year-old female, immunocompromised, with history of recent use of Remicade, methotrexate and now on Orencia, who is admitted with a liver abscess that was seen on May 28, [address] incidentally, but now patient has right upper quadrant pain and anorexia. The patient is scheduled for a CT-guided/ultrasound guided drainage of the abscess tomorrow. PLAN: Continue with IV meropenem 1 gram every 8 hours. Obtain entameba histolytica serology. Please send fluid from liver abscess for fungal smear and culture, acid-fast bacilli (AFB) smear and culture, as well as aerobic and anaerobic smear and culture. The patient will probably need home IV antibiotics for at least a couple of weeks, since the liver abscess is quite big. Unfortunately, the patient will be leaving to [place], as her is relocating in the and therefore, her treatment plan will depend on her relocation. Further decision will depend on cultures and susceptibility of pathogens. Case has been discussed with Dr. Zimmer. Upon review of further labs from 08/01/2020, antiproteinase 3 is 3.9; anticardiolipin IgM is 27. IgA and IgG were negative. Serene-Faustin virus (EBV) serology, IgG and nuclear antibodies are positive on 07/22/2020. Hepatitis B surface antigen negative. Hepatitis B surface antibody positive. Hepatitis B core antigen negative. Quantiferon TB Gold negative. Lyme serology 06/26/2019 was negative. MTDD
--- NOTE | 2021-06-05 16:46 | IPN ---
PROGRESS NOTE DATE: 06/05/2021 SUBJECTIVE: The patient was afebrile overnight. Pain is described as 7/10, achy at times, and comfortable this morning a little bit lower than yesterday's pain 4-5/10. No nausea or vomiting. No chills overnight. No night sweats. OBJECTIVE: VITAL SIGNS: Temperature 97.9, pulse 74, respiratory rate 18, blood pressure 104/75, 99% on room air. GENERAL: The patient is awake, alert, and oriented to person, place, and time. HEENT: Anicteric, no jaundice, no distress. NECK: No JVD, thyromegaly, or cervical lymphadenopathy. LUNGS: Clear to auscultation. No wheezing, rales, or rhonchi. HEART: S1, S2. Sinus rhythm. ABDOMEN: Soft and tender in the right upper quadrant. No rebound. No guarding. Doughy and distended abdomen. EXTREMITIES: No cyanosis, clubbing, or any pitting edema. LABORATORY DATA: White blood cell count 10.7, hemoglobin 11, hematocrit 36.6, platelet count 292,000. Sodium 140, potassium 3.3, chloride 106, bicarb 30, BUN 6, creatinine 0.47, glucose of 80. Bilirubin 0.2, direct bilirubin 0.1, AST 12, ALT 13. Procalcitonin less than 0.05. MICROBIOLOGY: Liver gram stain, abscess acid fasting and fungal smear have been sent. Respiratory panel negative. Two sets of blood cultures negative. IMAGING DATA: CT abdomen and pelvis 06/04/2021, large abscess and posterior segment of the right lobe of the liver cystic mass less likely possibility. Multiple probable splenic abscesses. Cystic neoplasm is considered, but less likely. Liver ultrasound 06/05/2021, shows complex cystic mass with posterior segment of the right hepatic lobe corresponding to cystic lesion consistent with a liver abscess; cystic liver lesions are not excluded. ASSESSMENT: This is a 35-year-old female who had been diagnosed with anticardiolipin antibody positive. Previously started on Eliquis, but the patient was noncompliant and had decided not to take any anticoagulation for the past year. Active tobacco abuser, history of lower extremity cellulitis, chronic rheumatoid arthritis on Orencia and prednisone 10 mg b.i.d. previously on methotrexate, who presented to the emergency room as recommended by her sdet due to a finding of a liver abscess on routine CT chest to evaluate her noncalcified pulmonary nodules. The patient admitted to night sweats, but denied any documented fever, chills, nausea, vomiting, diarrhea, and had had abdominal pain, which has worsened over the past two to three days. Active issues: 1. Liver abscess. Awaiting entameoba histolytica ab. currently on intravenous meropenem, Bacid, as-needed morphine for pain, and Percocet. Infectious disease (ID) consulted. Antiemetics. Await culture results. 2. Active tobacco abuse. Tobacco cessation counseling. Nicotine gum as needed. 3. History of anticardiolipin antibody. The patient has taken herself off Eliquis for about a year. Currently not taking any anticoagulation. She is moving to [place] and would like to have a different telephoto engineer. Disposition: Defer to ID regarding duration of antibiotics. MTDD
[2021-06-05 22:00] VITALS: BP 107/58
[2021-06-06] MEDS: PERCOCET 5MG/325MG TAB PO PRN ×4 (02:48→21:53)
[2021-06-06] MEDS: MEROPENEM INJ 1 GM in IV 1 EA IV SCH ×3 (02:48→17:56)
[2021-06-06] MEDS: PROMETHAZINE INJ 25 MG/ML VIAL (J2550) IV PRN (04:13)
[2021-06-06 06:00] VITALS: BP 112/69
[2021-06-06 07:01] LABS: HEMATOCRIT 34.7 % (36.0-47.0); HEMOGLOBIN 11.5 g/dl (12.0-15.5); MEAN CORPUSCULAR HEMOGLOBIN 30.6 pg (27.0-33.0); MEAN CORPUSCULAR HGB CONC 33.1 g/dl (32.0-36.5); MEAN CORPUSCULAR VOLUME 92.3 fl (80.0-96.0); PLATELET COUNT, AUTOMATED 257 10^3/uL (150-450); RED BLOOD COUNT 3.76 10^6/uL (4.00-5.40); WHITE BLOOD COUNT 5.6 10^3/uL (4.0-10.0)
[2021-06-06 07:32] LABS: BASOPHILS 1 % (0-1); EOSINOPHILS 1 % (0-3); LYMPHOCYTES 56 % (16-44); MONOCYTES 3 % (0-5); NEUTROPHILS 39 % (28-66); PLATELET ESTIMATE NORMAL (NORMAL)
[2021-06-06 07:40] LABS: ALBUMIN 2.8 GM/DL (3.2-5.2); ALT/SGPT 15 U/L (12-78); BILIRUBIN,DIRECT 0.1 MG/DL (0.0-0.2); BILIRUBIN,TOTAL 0.4 MG/DL (0.2-1.0); BLOOD UREA NITROGEN 7 MG/DL (7-18); C REACTIVE PROTEIN QUANTITATIV 6.54 MG/DL (0.00-0.30); CALCIUM LEVEL 8.3 MG/DL (8.5-10.1); CARBON DIOXIDE LEVEL 32 MEQ/L (21-32); CHLORIDE LEVEL 104 MEQ/L (98-107); CREATININE FOR GFR 0.43 MG/DL (0.55-1.30); GLOMERULAR FILTRATION RATE > 60.0 (>60); GLUCOSE, FASTING 81 MG/DL (70-100); POTASSIUM SERUM 3.6 MEQ/L (3.5-5.1); SODIUM LEVEL 142 MEQ/L (136-145); TOTAL PROTEIN 6.4 GM/DL (6.4-8.2)
[2021-06-06] MEDS: LACTOBACILLUS ACIDOPHILUS CAP (BACID) PO SCH ×4 (07:59→21:21)
[2021-06-06] MEDS: NICOTINE 14 MG/24 HR TRANSDERMAL TD SCH (07:59)
[2021-06-06 08:21] LABS: ERYTHROCYTE SEDIMENTATION RATE 61 mm/hr (0-20)
[2021-06-06] MEDS: ALPRAZolam 0.5 MG TAB PO PRN ×2 (08:48→23:23)
[2021-06-06] MEDS ORDERED: NS 1,000 ML IV ONE (10:10)
[2021-06-06] MEDS ORDERED: HYDROMORPHONE HCL 0.5 MG/ 0.5 ML SYRINGE (J1170 PER 1) IV ONE (10:30)
[2021-06-06] MEDS: KETOROLAC 30 MG/ML 1ML VIAL IV SCH ×3 (11:09→23:23)
[2021-06-06] MEDS ORDERED: HYDROMORPHONE HCL 0.5 MG/ 0.5 ML SYRINGE (J1170 PER 1) IV PRN (12:30)
--- NOTE | 2021-06-06 12:31 | IPNPDOC ---
Date Seen The patient was seen on 06/06/21. Progress Note SUBJECTIVE: Patient complains of 10 out of 10 pain with Percocet being in adequate. Patient requested for breakthrough medication last night but physician was called last night to change orders. Patient is requesting breakthrough medications for severe pain. No fever, chills or night sweats overnight patient c/o persistent nausea, without vomiting, but tolerating her diet. Requesting Zofran because has not had relief with Phenergan. Unable to sleep last night and requesting A sleeping pill and IV Dilaudid for breakthrough pain OBJECTIVE: VITAL SIGNS: See below GENERAL: The patient is awake, alert, and oriented to person, place, and time. HEENT: Anicteric, no jaundice, no distress. . Pupils equally round, reactive to light accommodation NECK: No JVD, thyromegaly, or cervical lymphadenopathy. LUNGS: Clear to auscultation. No wheezing, rales, or rhonchi. , Air entry is equal HEART: S1, S2. Sinus rhythm. , No carotid bruit ABDOMEN: Soft and tender in the right upper quadrant. No rebound. No guarding. Doughy and distended abdomen. EXTREMITIES: No cyanosis, clubbing, or any pitting edema. LABORATORY DATA: See below MICROBIOLOGY: Liver gram stain, abscess acid fasting and fungal smear have been sent. Respiratory panel negative. Two sets of blood cultures negative. IMAGING DATA: CT abdomen and pelvis 06/04/2021, large abscess and posterior segment of the right lobe of the liver cystic mass less likely possibility. Multiple probable splenic abscesses. Cystic neoplasm is considered, but less likely. Liver ultrasound 06/05/2021, shows complex cystic mass with posterior segment of the right hepatic lobe corresponding to cystic lesion consistent with a liver abscess; cystic liver lesions are not excluded. ASSESSMENT: This is a 35-year-old female who had been diagnosed with anticardiolipin antibody positive. Previously started on Eliquis, but the patient was noncompliant and had decided not to take any anticoagulation for the past year. Active tobacco abuser, history of lower extremity cellulitis, chronic rheumatoid arthritis on Orencia and prednisone 10 mg b.i.d. previously on methotrexate, who presented to the emergency room as recommended by her chicken stuffer due to a finding of a liver abscess on routine CT chest to evaluate her noncalcified pulmonary nodules. The patient admitted to night sweats, but denied any documented fever, chills, nausea, vomiting, diarrhea, and had had abdominal pain, which has worsened over the past two to three days. Active issues: 1. Liver abscess. Awaiting entameoba histolytica ab. currently on intravenous meropenem, Bacid, as-needed IV Dilantin 0.2 mg every 6 hourly for pain, and Percocet. Infectious disease (ID) consulted. Antiemetics. Await culture results. Monitor for respiratory distress 2. Active tobacco abuse. Tobacco cessation counseling. Nicotine gum as needed. 3. History of anticardiolipin antibody. The patient has taken herself off Eliquis for about a year. Currently not taking any anticoagulation. She is moving to [place] and would like to have a different senior training and development rep. 4. Insomnia., Trazodone as needed Disposition: Defer to ID regarding de-escalation of antibiotics, duration, IV versus by mouth. VS, I&O, 24H, Fishbone Vital Signs/I&O Vital Signs Date Time Temp Pulse Resp B/P (MAP) Pulse Ox O2 Delivery O2 Flow Rate FiO2 06/06/21 11:19 16 06/06/21 06:00 97.5 68 112/69 (83) 98 Room Air I&O- Last 24 Hours up to 6 AM 06/06/21 06:00 Intake Total 1169 ml Output Total 525 ml Balance 644 ml Laboratory Data 24H LABS Laboratory Tests 2 06/06/21 06:49: Neutrophils (%) (Auto) , Nucleated Red Blood Cells % (auto) 0.0, Neutrophils 39, Lymphocytes (Manual) 56H, Monocytes (Manual) 3, Eosinophils (Manual) 1, Basophils (Manual) 1, Red Blood Cell Morphology NORMAL, Platelet Estimate NORMAL, Erythrocyte Sedimentation Rate 61H, Anion Gap 6L, Glomerular Filtration Rate > 60.0, Calcium Level 8.3L, Total Bilirubin 0.4#, Direct Bilirubin 0.1, Aspartate Amino Transf (AST/SGOT) 14, Alanine Aminotransferase (ALT/SGPT) 15, Alkaline Phosphatase 109, C-Reactive Protein, Quantitative 6.54H, Total Protein 6.4, Albumin 2.8L, Albumin/Globulin Ratio 0.8L CBC/BMP Laboratory Tests 06/06/21 06:49 Microbiology Microbiology 06/05/21 Acid Fast Stain, Received Pending 06/05/21 Mycobacterial Culture, Received Pending 06/05/21 Gram Stain - Final, Resulted 06/05/21 Abscess Culture, Resulted Pending 06/05/21 Anaerobic Culture, Resulted Pending 06/05/21 Fungal Smear, Received Pending 06/05/21 Fungal Culture, Received Pending 06/04/21 Respiratory Virus Panel (PCR) ([place]) - Final, Complete 06/04/21 Blood Culture - Preliminary, Resulted No growth after 24 hours . All specim... 06/04/21 Blood Culture - Preliminary, Resulted No growth after 24 hours . All specim... ERROL RIOS MD Jun 06, 2021 12:31
[2021-06-06] MEDS: NS 1,000 ML IV SCH ×2 (13:00→21:22)
[2021-06-06] MEDS: ONDANSETRON 4MG/2ML VIAL IV SCH ×2 (13:12→18:00)
[2021-06-06 14:00] VITALS: BP 107/67
[2021-06-06] MEDS ORDERED: NS 1,000 ML IV SCH (14:00)
[2021-06-06] MEDS: traZODone 50 MG TAB PO PRN ×2 (21:53→23:55)
[2021-06-06 22:00] VITALS: BP 113/69
[2021-06-07] MEDS: ONDANSETRON 4MG/2ML VIAL IV SCH ×2 (00:38→06:09)
[2021-06-07] MEDS: MEROPENEM INJ 1 GM in IV 1 EA IV SCH ×3 (02:26→17:02)
[2021-06-07 06:00] VITALS: BP 116/78
[2021-06-07] MEDS: KETOROLAC 30 MG/ML 1ML VIAL IV SCH ×4 (06:07→23:23)
[2021-06-07] MEDS: PERCOCET 5MG/325MG TAB PO PRN (06:08)
--- NOTE | 2021-06-07 07:14 | IPN ---
PROGRESS NOTE DATE: 06/06/2021 SUBJECTIVE: Marta complains of pain in her right upper quadrant and states that the nurses have not been given her pain medication on time to get enough relief. She has had no fever or chills. No nausea, vomiting, or diarrhea. Her appetite has been fair. She has remained afebrile. OBJECTIVE: VITAL SIGNS: Temperature 97.7, pulse 72, respirations 19, blood pressure 107/67, O2 saturation 98% on room air. HEART: Normal S1, S2. No murmurs, rubs, or gallops. LUNGS: Clear. No wheezes, rales, or rhonchi. ABDOMEN: Tender in the right upper quadrant. No rebound. Bowel sounds positive. No splenomegaly. No left upper quadrant tenderness. EXTREMITIES: No clubbing, cyanosis, or edema. No calf tenderness. LABORATORY DATA: White count 5.6, hemoglobin 11.5, hematocrit 34.7, platelets 257,000, neutrophils 39%, lymphocytes 56%, monocytes 3%. ESR 61. Sodium 142, potassium 3.6, chloride 104, bicarb 32, BUN 7, creatinine 0.43, glucose 81, calcium 8.3. Bilirubin 0.4, AST 14, ALT 15, alkaline phosphatase 109. CRP 6.5. Total protein 6.4, albumin 2.8. AFB smear and culture is pending. Fungal smear and culture are pending. Gram stain from abscess fluid had many white cells and no organisms seen. 45 mL of green drainage was aspirated. The drain was not left in place. IMPRESSION: 1. Liver and splenic abscesses in a patient immunocompromised currently on IV meropenem. We will have to wait for results of abscess culture to decide on home IV antibiotics. The patient may need a peripherally inserted central catheter (PICC) line for home IV antibiotic. 2. Rheumatoid arthritis on Orencia. Previously on methotrexate and Remicade. 3. 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 PLAN: Continue IV meropenem. Further antibiotic therapy will depend on culture results. Entamoeba histolytica antibodies were also sent.
[2021-06-07 07:48] LABS: HEMATOCRIT 34.3 % (36.0-47.0); MEAN CORPUSCULAR HEMOGLOBIN 29.8 pg (27.0-33.0); MEAN CORPUSCULAR HGB CONC 32.1 g/dl (32.0-36.5); PLATELET COUNT, AUTOMATED 250 10^3/uL (150-450); RED BLOOD COUNT 3.69 10^6/uL (4.00-5.40); WHITE BLOOD COUNT 5.7 10^3/uL (4.0-10.0)
[2021-06-07 08:14] LABS: ALBUMIN 2.6 GM/DL (3.2-5.2); ALT/SGPT 14 U/L (12-78); BILIRUBIN,DIRECT 0.1 MG/DL (0.0-0.2); BILIRUBIN,TOTAL 0.2 MG/DL (0.2-1.0); BLOOD UREA NITROGEN 10 MG/DL (7-18); CALCIUM LEVEL 7.9 MG/DL (8.5-10.1); CARBON DIOXIDE LEVEL 30 MEQ/L (21-32); CHLORIDE LEVEL 109 MEQ/L (98-107); CREATININE FOR GFR 0.48 MG/DL (0.55-1.30); GLOMERULAR FILTRATION RATE > 60.0 (>60); GLUCOSE, FASTING 80 MG/DL (70-100); POTASSIUM SERUM 3.9 MEQ/L (3.5-5.1); SODIUM LEVEL 143 MEQ/L (136-145); TOTAL PROTEIN 5.8 GM/DL (6.4-8.2)
[2021-06-07 08:23] LABS: ATYPICAL LYMPH 6 % (0-5); LYMPHOCYTES 51 % (16-44); MONOCYTES 2 % (0-5); NEUTROPHILS 39 % (28-66); PLATELET ESTIMATE NORMAL (NORMAL)
[2021-06-07] MEDS: LACTOBACILLUS ACIDOPHILUS CAP (BACID) PO SCH ×4 (08:43→21:19)
[2021-06-07] MEDS: NICOTINE 14 MG/24 HR TRANSDERMAL TD SCH (08:44)
[2021-06-07] MEDS ORDERED: MOM 30ML SUSPENSION UDC PO PRN (10:35)
[2021-06-07] MEDS ORDERED: MIRALAX *UNIT DOSE* 17GM PACKET PO PRN (10:35)
[2021-06-07] MEDS ORDERED: SENOKOT S TAB PO PRN (10:35)
[2021-06-07] MEDS ORDERED: LIDOCAINE 1% MDV 20ML VIAL As Ordered ONE (10:53)
[2021-06-07] MEDS: PERCOCET 5MG/325MG TAB PO SCH ×4 (11:09→21:19)
--- NOTE | 2021-06-07 11:15 | REP ---
INDICATION: LIVER BIOPSY. COMPARISON: None. TECHNIQUE: The procedure was performed under the direct supervision of Dr. Richardson. The patient has a history of a complex cystic mass in the posterior segment of the right hepatic lobe seen on a previous ultrasound dated 06/05/2021. The risks and benefits of the procedure were explained to the patient and informed consent was obtained. The cystic mass was localized using ultrasound guidance. The skin was prepped and draped in a sterile fashion. 6 cc of 1% lidocaine was used as a local anesthetic. Using ultrasound guidance an 18 gauge needle was inserted and advanced into the cystic mass. 45 cc of dutch pus was withdrawn and sent to the lab for analysis. Estimated blood loss: Less than 1 cc. The patient tolerated the procedure well and there were no immediate complications. After the appropriate amount to monitor convalescence the patient was discharged from the department. FINDINGS: Hepatic abscess. IMPRESSION: Ultrasound guidance for liver abscess drain. <Electronically signed by Efrain Thompson > 06/06/21 1711 <Electronically signed by Modesto Richardson > 06/07/21 1111
--- NOTE | 2021-06-07 11:37 | IPN ---
PROGRESS NOTE DATE: 06/07/2021 SUBJECTIVE: The patient complains of severe pain, 8/10 pain, not alleviated by Percocet and states that pain relief only lasts for about 3-4 hours. The patient was able to sleep a little better on Trazodone last night. She was requesting scheduled pain medications due to breakthrough pain and unable to receive additional pain medications unless specified every 6 hours. No fever or chills overnight. She is tolerating her diet. OBJECTIVE: PHYSICAL EXAMINATION: VITAL SIGNS: Temperature 96.8, pulse 66, respiratory rate 18, blood pressure 116/78, oxygen saturation 95% on room air. GENERAL APPEARANCE: Awake, alert, oriented to person, place and time, answering questions appropriately. LUNGS: Clear to auscultation. No rales, rhonchi or wheezes. HEART: S1, S2, sinus rhythm. ABDOMEN: Soft, tender right upper quadrant. No rebound or guarding. Slightly distended, doughy in appearance. EXTREMITIES: No clubbing, cyanosis, or any pitting edema. Laboratory data, microbiology, imaging studies have been reviewed. ASSESSMENT: A 35-year-old female on Orencia for rheumatoid arthritis who presented to the Emergency Room, non-calcified pulmonary nodules who presented to the E.R. after being found to have a liver abscess on CT chest by her cake inspector for routine surveillance of her pulmonary nodules. The patient was started on intravenous Meropenem, underwent abscess drainage by [facility] with cultures still pending. She is afebrile with normal white count. On IV Meropenem, managed by Infectious Disease Specialist, Dr. Jamaal Arredondo. CURRENT ISSUES: 1. Hepatic abscess. 2. History of splenic infarcts refused to be on Eliquis and has not followed up with Dr. Alonzo for over a year. 3. History of anti-cardiolipid, immunoglobulin positive - The patient refused Eliquis and has not taken this in over one year. Refused to follow up with Checker/Stocker, Dr. Alonzo. will be moving to [place] and plans on getting a second opinion. PLAN: 1. The patient is on IV Meropenem, afebrile, no white count. Culture results are still pending. PICC line for IV antibiotics if needed. 2. I.D. consult. 3. The patient is moving to [place] and will need referral to Infectious Disease and Primary Care if the patient requires IV antibiotics as an outpatient. 4. Pain control is inadequate and the patient is requesting for scheduled pain medications one tablet of Percocet q. 6 hourly for now. Continue with Toradol 30 IV q. 6. Continue with IV fluids and monitor for renal dysfunction. IV Dilaudid as needed for breakthrough pain. 5. Bowel regimen if needed. 6. For insomnia, continue with Trazodone as needed. MTDD
[2021-06-07] MEDS: ONDANSETRON 4MG/2ML VIAL IV PRN ×3 (12:25→22:05)
[2021-06-07] MEDS: HYDROMORPHONE HCL 0.5 MG/ 0.5 ML SYRINGE (J1170 PER 1) IV PRN ×3 (12:58→22:06)
[2021-06-07 14:00] VITALS: BP 114/73
[2021-06-07] MEDS: ALPRAZolam 0.5 MG TAB PO PRN ×2 (14:37→23:22)
--- NOTE | 2021-06-07 16:46 | REP ---
INDICATION: liver abscess picc iv abx as outpt. COMPARISON: None. TECHNIQUE: The procedure was performed under the direct supervision of Dr. Richardson. The risks and benefits of the procedure were explained to the patient and informed consent was obtained. The right basilic vein was localized using ultrasound guidance. The skin was prepped and draped in a sterile fashion. 2% lidocaine was used as a local anesthetic. Using ultrasound guidance the basilic vein was cannulated and a 0.018 guidewire was inserted and advanced to the SVC using fluoroscopic guidance, and last image hold technology. The needle was removed and a 4.5 Surinamese dilator and peel-away sheath was inserted over the guide wire. A 4.5 Surinamese single lumen catheter was cut to length of 38 cm. The dilator was removed and the catheter was inserted over the guide wire with the tip ending in the SVC. The peel-away sheath was removed and the catheter was flushed with heparinized saline as per Hospital protocol. The catheter was affixed to the skin and a sterile dressing was applied. Estimated blood loss: Less than 1 cc The patient tolerated the procedure well and there were no immediate complications. 0.1 minutes of fluoro time was utilized for this procedure. FINDINGS: None IMPRESSION: PICC line insertion right basilic vein with the tip ending in the SVC. <Electronically signed by Efrain Thompson > 06/07/21 1638 <Electronically signed by Modesto Richardson > 06/07/21 1642
[2021-06-07] MEDS: SODIUM CHLORIDE 0.9% INJ 10 ML SYR IV SCH (17:01)
[2021-06-07 22:00] VITALS: BP 115/78
[2021-06-07] MEDS: SODIUM CHLORIDE 0.9% INJ 10 ML SYR IV PRN (22:06)
[2021-06-07] MEDS: traZODone 50 MG TAB PO PRN (23:22)
[2021-06-08] MEDS: PERCOCET 5MG/325MG TAB PO SCH ×3 (01:57→09:55)
[2021-06-08] MEDS: MEROPENEM INJ 1 GM in IV 1 EA IV SCH ×2 (01:57→09:56)
[2021-06-08] MEDS: ONDANSETRON 4MG/2ML VIAL IV PRN ×2 (02:53→07:38)
[2021-06-08] MEDS: HYDROMORPHONE HCL 0.5 MG/ 0.5 ML SYRINGE (J1170 PER 1) IV PRN ×2 (02:53→07:38)
[2021-06-08] MEDS: SODIUM CHLORIDE 0.9% INJ 10 ML SYR IV PRN (02:54)
[2021-06-08] MEDS: KETOROLAC 30 MG/ML 1ML VIAL IV SCH ×2 (05:15→11:23)
[2021-06-08] MEDS: SODIUM CHLORIDE 0.9% INJ 10 ML SYR IV SCH (05:16)
[2021-06-08 05:31] LABS: HEMATOCRIT 32.5 % (36.0-47.0); HEMOGLOBIN 10.4 g/dl (12.0-15.5); MEAN CORPUSCULAR HEMOGLOBIN 29.8 pg (27.0-33.0); MEAN CORPUSCULAR VOLUME 93.1 fl (80.0-96.0); PLATELET COUNT, AUTOMATED 220 10^3/uL (150-450); RED BLOOD COUNT 3.49 10^6/uL (4.00-5.40); WHITE BLOOD COUNT 7.1 10^3/uL (4.0-10.0)
[2021-06-08 06:00] VITALS: BP 115/77
[2021-06-08 06:07] LABS: ALBUMIN 2.7 GM/DL (3.2-5.2); ALT/SGPT 15 U/L (12-78); BILIRUBIN,DIRECT < 0.1 MG/DL (0.0-0.2); BILIRUBIN,TOTAL 0.2 MG/DL (0.2-1.0); BLOOD UREA NITROGEN 9 MG/DL (7-18); CALCIUM LEVEL 7.8 MG/DL (8.5-10.1); CARBON DIOXIDE LEVEL 31 MEQ/L (21-32); CHLORIDE LEVEL 106 MEQ/L (98-107); CREATININE FOR GFR 0.58 MG/DL (0.55-1.30); GLOMERULAR FILTRATION RATE > 60.0 (>60); GLUCOSE, FASTING 96 MG/DL (70-100); SODIUM LEVEL 141 MEQ/L (136-145); TOTAL PROTEIN 5.7 GM/DL (6.4-8.2)
[2021-06-08 06:20] LABS: ATYPICAL LYMPH 2 % (0-5); EOSINOPHILS 3 % (0-3); LYMPHOCYTES 24 % (16-44); METAMYELOCYTES 1 % (0-0); MONOCYTES 4 % (0-5); NEUTROPHILS 63 % (28-66)
[2021-06-08 06:23] LABS: PLATELET ESTIMATE NORMAL (NORMAL); SMUDGE CELLS 1+
[2021-06-08] MEDS: LACTOBACILLUS ACIDOPHILUS CAP (BACID) PO SCH (07:37)
[2021-06-08] MEDS ORDERED: BACI1CAP PO (09:05)
[2021-06-08] MEDS ORDERED: FLAG500T PO (09:05)
[2021-06-08] MEDS ORDERED: LEVO750T13 PO (09:05)
[2021-06-08] MEDS ORDERED: PERCOCET PO (09:05)
[2021-06-08] MEDS ORDERED: CEFD300CAP PO (09:47)
[2021-06-08] MEDS ORDERED: FLUO60TA PO (09:49)
[2021-06-08] MEDS: NICOTINE 14 MG/24 HR TRANSDERMAL TD SCH (09:55)
[2021-06-08] MEDS ORDERED: ZOFR4TAB16 PO (11:46)
--- NOTE | 2021-06-08 13:04 | DSES ---
DISCHARGE SUMMARY DATE OF ADMISSION: 06/04/2021 DATE OF DISCHARGE: 06/08/2021 CONSULTANTS DURING ADMISSION: Jamaal Arredondo M.D. PRIMARY DISCHARGE DIAGNOSES: 1. Hepatic abscess. 2. Splenic infarcts. 3. History of anticardiolipin IgG antibody positive; refuses anticoagulation and has been noncompliant with Eliquis for one and a half years and lost to follow-up with the [facility], Dr. Tejinder Alonzo, previous prescription benefit specialist. 4. Anemia. 5. Chronic immunosuppression secondary to Orencia with history of chronic rheumatoid arthritis. 6. Rheumatoid arthritis on chronic Orencia. 7. Noncalcified pulmonary nodules. DISCHARGE MEDICATIONS: 1. Due to PENICILLIN AND LEVAQUIN ALLERGY, the patient was given cefdinir and Flagyl. Cefdinir 300 mg p.o. b.i.d. for 14 days and Flagyl 500 mg q. 8 hourly for 14 days. 2. Bacid one tablet with meals and h.s. 3. Percocet 5/325 one tablet q. 4 hours as needed for pain. 4. Fluoxetine 60 daily. 5. Xanax 1 mg b.i.d. 6. Orencia to be held until acute infection has resolved. 7. Prednisone 10 mg daily as needed for rheumatoid arthritis flare. HOSPITAL COURSE: This is a 35-year-old female with prior history of rheumatoid arthritis on Orencia previously tried on methotrexate sent to Dr. Tejinder Alonzo at the [facility] prescription benefit specialist for evaluation of splenomegaly and splenic infarcts. At that time, the patient had anticardiolipin IgG positive with recommendation to take Eliquis. However, the patient had decided to not take her medications and has not followed with Dr. Alonzo since the initial visit. The patient presented to the emergency room after her carbon furnace operator helper found a liver abscess on CT chest being done for surveillance of her noncalcified pulmonary nodules. The patient did complaint of right upper quadrant tenderness on and off and was admitted for further evaluation and treatment. The patient was started on intravenous meropenem. She was afebrile with a white count of 13.5. Sent for a CT guided drainage with 45 mL removed. Gram strain and cultures were negative for organisms. No growth aerobically or anaerobically. Entamoeba histolytica was sent. Dr. Jamaal Arredondo was consulted and agreed with IV meropenem for now and discharge on Levaquin and Flagyl for 14 more days. During the admission, the patient remained afebrile, but continued to complain of severe pain, did not do well with as-needed Percocet, and wanted scheduled medications. She was given intravenous Toradol q. 6 hourly, placed on antiemetics of Phenergan, which did not help her, and changed to Zofran as needed with better relief. The patient also was given intravenous Dilaudid as needed for breakthrough pain and she requested for Percocet to be given scheduled every four hours for better control. The patient was given intravenous fluids to prevent contrast nephropathy while on IV Toradol. She had improvement in her pain, but still rated it at 4 to 5/10 on a pain scale. The patient's white blood cell count improved to normal of 5.6 on 06/06 and remained normal until discharge on 06/08/2021. Blood cultures remained negative. Entamoeba histolytica was still pending. IgA, IgG, and IgM were all checked. The IgG was 1060, IgA 319, and IgM of 259. Due to patient allergy to Levaquin and penicillin, recommendations from Dr. Arredondo was to discharge on Levaquin and Flagyl. Her Levaquin was changed to third generation cephalosporin with cefdinir 300 b.i.d. with immediate follow-up with Dr. Arredondo within five days of hospital discharge. DISCHARGE PHYSICAL EXAMINATION: VITAL SIGNS: Temperature 98.1, pulse 69, respiratory rate 16, blood pressure 115/77, 96% on room air. GENERAL: Awake, alert, and oriented to person, place, and time. Answering questions appropriately. HEENT: Pupils round and reactive. Extraocular muscles intact. NECK: No JVD, thyromegaly, or cervical lymphadenopathy. Trachea is midline. LUNGS: Clear to auscultation. No wheezing, rales, or rhonchi. HEART: S1, S2. Sinus rhythm. ABDOMEN: Soft and tender in the right upper quadrant. No rebound or guarding. No abdominal bruit. EXTREMITIES: No cyanosis, clubbing, or pitting edema. DIAGNOSTIC STUDIES: Laboratory data, microbiology, and imaging studies, please see the chart. Time spent on discharge 30 minutes.
== END 2021-06-08 12:28 | disposition home or self-care (01) | DRG 442 ==
LOC: M ED 14:09 → M ED INP 17:02 → ENRESERV 06-05 04:54 → M MSPAV 06-05 09:07
PROVIDERS: ADMIT General Practice; ATTEND General Practice
PROC: 02HV33Z Insertion of Infusion Device into Superior Vena Cava, Percutaneous Approach (ICD-10-PCS; 2021-06-07)
PROC: 0FB03ZX Excision of Liver, Percutaneous Approach, Diagnostic (ICD-10-PCS; principal; 2021-06-07 11:00)
DX: K75.0 Abscess of liver (principal); D84.9 Immunodeficiency, unspecified; D73.5 Infarction of spleen; Z91.14 Patient's other noncompliance with medication regimen; Z79.01 Long term (current) use of anticoagulants; D64.9 Anemia, unspecified; R91.8 Other nonspecific abnormal finding of lung field; M06.9 Rheumatoid arthritis, unspecified; Z88.0 Allergy status to penicillin; Z88.8 Allergy status to other drugs, medicaments and biological substances; F17.200 Nicotine dependence, unspecified, uncomplicated; Z79.52 Long term (current) use of systemic steroids; K76.0 Fatty (change of) liver, not elsewhere classified; F41.9 Anxiety disorder, unspecified; F32.9 Major depressive disorder, single episode, unspecified